=== PATIENT | male | born 1985 | race Caucasian/White ===

== ENCOUNTER 2023-03-25 08:31 | Outpatient (OUT) | payer OTHER, SELFPAY ==
--- NOTE | 2023-03-25 08:46 | CT_ITS ---
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 Dose reduction techniques were achieved by using automated exposure control and/or adjustment of mA and/or kV according to patient size and/or use of iterative reconstruction technique. FINDINGS: LUNG BASES: No visible pulmonary or pleural disease. LIVER: No enlargement, atrophy, suspicious density, or significant focal lesion. BILIARY: No dilatation or calcification. PANCREAS: No lesion, fluid collection, or abnormal duct dilatation. SPLEEN: No enlargement or focal lesion. ADRENALS: No mass or enlargement. KIDNEYS: 1.7 cm left ovarian cyst. No mass, obstruction, or calcification. BOWEL/MESENTERY: Prior appendectomy. No visible mass, obstruction, or bowel wall thickening. No mesenteric lymphadenopathy. AORTA/VASCULAR: No aneurysm or dissection. RETROPERITONEUM: No mass or adenopathy. LYMPH NODES: No adenopathy. URINARY BLADDER: No visible focal wall thickening, lesion, or calculus. PELVIC ORGANS: No visible mass. Pelvic organs appropriate for patient age. ABDOMINAL WALL: Tiny fat filled umbilical hernia without stimulation. BONES: No bony lesion or fracture. OTHER: Negative. IMPRESSION: 1.No mass or lymphadenopathy to suggest recurrent or metastatic disease. 2.No suspicious findings. Electronically authenticated by: MANUEL BENNETT Date: 03/25/2023 15:38
--- NOTE | 2023-03-25 08:47 | XR_ITS ---
The [address] [address] Patient Name: MALA GIBSON MRN: [id number] date: 1985 Sex: M Assigned Patient Location: CT Current Patient Location: CT Accession/Order Number: [id number] Exam Date: 03/25/2023 08:58 Report Date: 03/25/2023 10:01 At the request of: YOLANDA PULIDO Procedure: XR wrist KALEB min 3V EXAMINATION: XR wrist KAELB min 3V HISTORY: Acute Bilateral Wrist Pain M25.539 COMPARISON: No relevant comparison available. FINDINGS: RIGHT FINDINGS: BONES: No significant arthropathy or acute abnormality. SOFT TISSUES: No visible soft tissue swelling. OTHER: Negative. LEFT FINDINGS: BONES: No significant arthropathy or acute abnormality. SOFT TISSUES: No visible soft tissue swelling. OTHER: Negative. IMPRESSION: RIGHT CONCLUSION: Normal examination. LEFT CONCLUSION: Normal examination. Electronically authenticated by: MANUEL BENNETT Date: 03/25/2023 10:01
== END 2023-03-25 08:32 | disposition home or self-care (01) ==
PROVIDERS: PCP Family Medicine; Visit Provider Family Medicine
DX: D37.3 Neoplasm of uncertain behavior of appendix (principal); M25.531 Pain in right wrist; M25.532 Pain in left wrist
CPT/HCPCS: 73110; 74177

== ENCOUNTER 2023-04-09 08:12 | Outpatient (OUT) | payer OTHER, SELFPAY ==
[2023-04-09 08:49] LABS: Basophils Percent Auto 0.7 % (0.2-2.0); Eosinophils Absolute Auto 0.2 10^3/uL (0.0-0.7); Eosinophils Percent Auto 2.8 % (0.9-7.0); Hematocrit 42.5 % (42.0-54.0); Hemoglobin 13.7 g/dL (14.0-18.0); Immature Granulocytes Abs Auto 0.01 10^3/uL (0.00-0.03); Immature Granulocytes Pct Auto 0.2 % (0.0-0.5); Lymphocytes Absolute Auto 2.6 10^3/uL (1.2-3.8); Lymphocytes Percent Auto 45.1 % (20.5-60.0); Mean Corpuscular HGB Conc 32.2 g/dL (29.9-35.2); Mean Corpuscular Hemoglobin 29.4 pg (25.9-34.0); Mean Corpuscular Volume 91.2 fL (80.0-94.0); Monocytes Absolute Auto 0.6 10^3/uL (0.3-0.8); Monocytes Percent Auto 11.2 % (1.7-12.0); Neutrophils Absolute Auto 2.3 10^3/uL (1.4-6.5); Platelet Count 282 10^3/uL (150-450); Red Blood Count 4.66 10^6/uL (4.70-6.10); Red Cell Distribution Width 13.1 % (11.0-15.0); White Blood Count 5.7 10^3/uL (4.0-11.0)
[2023-04-09 09:03] LABS: Estimated Average Glucose 111 mg/dL; Glycohemoglobin A1C 5.5 % (4.5-6.2)
[2023-04-09 09:55] LABS: Alanine Aminotransferase 95 U/L (16-63); Albumin Level 3.9 g/dL (3.4-5.0); Alkaline Phosphatase 53 U/L (46-116); Anion Gap 12.5; Aspartate Amino Transferase 39 U/L (15-37); BUN Creatinine Ratio 18.3; Bilirubin Total 0.8 mg/dL (0.2-1.0); Calcium 9.4 mg/dL (8.5-10.1); Carbon Dioxide 27.1 mmol/L (21.0-32.0); Chloride 105 mmol/L (98-107); Chol HDL Ratio 4.1; Cholesterol 147 mg/dL (<=200); Estimated GFR (African America >60 (>=60); Estimated GFR (Non-African Ame >60 (>=60); Globulin 4.1 g/dL; Glucose 106 mg/dL (74-106); HDL Cholesterol 36 mg/dL (40-60); Potassium 4.6 mmol/L (3.5-5.1); Sodium 140 mmol/L (136-145); Thyroid Stimulating Hormone 0.742 uIU/mL (0.358-3.740); Triglycerides 93 mg/dL (<=150); VLDL CHOLESTEROL 18.6 mg/dL
[2023-04-10 12:08] LABS: Insulin 9.2 uIU/mL (2.6-24.9)
== END 2023-04-09 08:13 | disposition home or self-care (01) ==
LOC: LAB 08:13
PROVIDERS: PCP Family Medicine; Visit Provider Family Medicine
DX: M25.539 Pain in unspecified wrist (principal); R20.2 Paresthesia of skin; Z12.5 Encounter for screening for malignant neoplasm of prostate
CPT/HCPCS: 36415; 80053; 80061; 83036; 83525; 84436; 84443; 84481; 85025; G0103

== ENCOUNTER 2025-04-09 08:51 | Outpatient (OUT) | payer OTHER, SELFPAY ==
--- OUTSIDE RECORDS SUMMARY | 2024-03-29 06:23 | XMS_ITS ---
Author Organization The [facility] in [place] Address [address] [place] [address] Care Team Providers Care Marketing Technology Coordinator Name Role Phone Gerardo Pulido Primary Care Provider [phone] YOLANDA PULIDO Unavailable [phone] REASON FOR VISIT + covid Medications Medication SIG (Take, Route, Frequency, Duration) Notes Start Date End Date Status dexAMETHasone 6 MG 1 tablet Orally qday for 6 03/29/2024 Active Azithromycin 250 MG 2 tabs day 1, then 1 tab Orally qd for 5 days 03/29/2024 Active Paxlovid (300/100) 20 x 150 MG & 10 x 100MG 3 tablets Orally Twice a day for 5 day(s) 03/29/2024 Active Encounters Encounter Location Date Provider Diagnosis [facility] [address] [place] [address] 03/29/2024 YOLANDA PLUIDO Plan Of Treatment Medication Medication Name Sig Start Date Stop Date Notes dexAMETHasone 6 MG 1 tablet Orally qday for 6 03/29/2024 Azithromycin 250 MG 2 tabs day 1, then 1 tab Orally qd for 5 days 03/29/2024 Paxlovid (300/100) 20 x 150 MG & 10 x 100MG 3 tablets Orally Twice a day for 5 day(s) 03/29/2024 Progress Notes * Bobby GARCIADOB:1985 (38 yo M)Acc No.[id number]:03/29/2024 Patient: Rom Bobby KELLOGG :1985 A ge:38 Y S ex:Male Address:[address], [place] , [place] [address] * Refills Start Azithromycin Tablet, 250 MG, Orally, 6, 2 tabs day 1, then 1 tab, qd, 5 days Start dexAMETHasone Tablet, 6 MG, Orally, 6, 1 tablet, qday, 6 Start Paxlovid (300/100) Tablet Therapy Pack, 20 x 150 MG & 10 x 100MG, Orally, 30, 3 tablets, Twice a day, 5 day(s) * true * Date: Generated for Tasha falk/Jarett/Kapilitting on: 0 04/09/2025 08:55 AM EDT
--- OUTSIDE RECORDS SUMMARY | 2024-05-12 04:19 | XMS_ITS ---
Author Organization The [facility] in [place] Address [address] [place] [address] Care Team Providers Care Campaign Worker Name Role Phone ChicaGerardo Primary Care Provider REASON FOR VISIT congestion Medications Medication SIG (Take, Route, Frequency, Duration) Notes Start Date End Date Status Amoxicillin-Pot Clavulanate 875-125 MG 1 tablet Orally every 12 hrs for 10 days 05/12/2024 Active Encounters Encounter Location Date Provider Diagnosis [facility] [address] [place] [address] 05/12/2024 Gerardo Coto Plan Of Treatment Medication Medication Name Sig Start Date Stop Date Notes Amoxicillin-Pot Clavulanate 875-125 MG 1 tablet Orally every 12 hrs for 10 days 05/12/2024 Progress Notes * Bobby GARCIADOB:1985 (38 yo M)Acc No.[id number]:05/12/2024 Patient: Bobby HARPER :1985 A ge:38 Y S ex:Male Address:[address] [place], [address] * Refills Start Amoxicillin-Pot Clavulanate Tablet, 875-125 MG, Orally, 20 Tablet, 1 tablet, every 12 hrs, 10 days, Refills=1 * true * Date: Generated for Printi ng/Faxing/eTransmitting on: 0 04/09/2025 08:55 AM EDT
--- OUTSIDE RECORDS SUMMARY | 2025-03-21 12:30 | XMS_ITS ---
Author Organization The [facility] in [place] Address [address] [place] [address] Care Team Providers Care Process Automation Engineer Name Role Phone Gerardo Coto Primary Care Provider Allergies No Known Allergies REASON FOR VISIT Breathing Issues Medications Medication SIG (Take, Route, Fr equency, Duration) Notes Start Date End Date Status Protonix 40 MG 1 tablet Orally Ever y Evening for 30 day(s) PRN 04/12/2023 Active Social History Tobacco Use: Social History Observation Description Date Details (start date - stop date) Never Smoker NA - NA Tobacco Use/Smoking Question Answer Notes Patient is a nonsmoker AUDIT-C (Standard) Question Answer Notes Did you have a drink containing alcohol in the p ast year? No Points 0 Interpretation Negative Problems Problem Type SNOMED Code ICD Code Onset Dates Problem Status W/U Status Risk Notes Problem Well adult (034673834) Well adult (Z00.00) Active confirmed Vital Signs Weight 325 lbs 03/21/2025 Height 68 in 03/21/2025 Blood pressure systolic 152 mm Hg 03/21/20 25 Blood pressure diastolic 92 mm Hg 025 BMI 49.41 kg/m2 03/21/2025 Procedures Procedure Date Ordered Date Performed Result Body Sit e CARDIO Stress Test - Cardiolite 03/21/2025 N/A CARDIO Echocardiogram 03/21/2025 N/A Encounters Encounter Location Date Provider Diagnosis [facility] [address] [place] [address] 03/21/2025 Gerardo Chica Dyspnea R06.00 and Well adult Z00.00 Assessments Encounter Date Diagnosis (ICD Code) Assessment Notes Treatment Notes Treatment Clinical Notes Section Notes 03/21/2025 Dyspnea (ICD-10 - R06.00) 03/21/2025 Well adult (ICD-10 - Z00.00) Plan Of Treatment Pending Test Test Name Order Date HEMOGLOBIN A1C (GLYCO) 03/21/2025 LIPID PANEL (CHOL/TRIG/HDL/LDL) 03/21/20 25 CARDIO Stress Test - Cardiolite 03/21/20 25 CARDIO Echocardiogram 03/21/2025 Insulin Level 03/21/2025 High Sensitivity Troponin 03/21/2025 BNP 03/21/2025 THYROID PANEL (T4/TSH/FREE T3) CMP (COMP MET JUAREZ) w/eGFR CKD-EPI 2024 CBC WITH DIFF 03/21/2025 Progress Notes * Bobby GARCIADOB:1985 (39 yo M)Acc No.[id number]:03/21/2025 Progress Note Patient: Bobby HARPER Provider: Gino Coto ([facility])MD :1985 A ge:39 Y S ex:Male Date:03/21/2025 Address:[facility] [address], [place] , [id number] Check In:04:20 PM ESTCheck O ut:05:09 PM EST Subjective: * Chief Complaints: * B reathing Issues * HPI: D epression Screening: PHQ-2 (2015 Edition) L ittle interest or pleasure in doing things??More than half the days F eeling down, depressed, or hopeless? S everal days T otal Score 3 oxygen has been - on lowert side some chao and no chest - Exposed to [employer] - has had PFT - has them yearly - had SE of just the test tehn had fume exposure -. D epression Screening: PHQ-9 L ittle interest or pleasure in doing things?More than half the days F eeling down, depressed, or hopeless S everal days T rouble falling or staying asleep, or sleeping too much N early every day F eeling tired or having little energy M ore than half the days P oor appetite or overeating N early every day F eeling bad about yourself or that you are a failure, or have let yourself or your family down M ore than half the days T rouble concentrating on things, such as reading the newspaper or watching television N ot at all M oving or speaking so slowly that other people could have noticed; or the opposite, being so fidgety or restless that you have been moving around a lot more than usual N ot at all T houghts that you would be better off or of hurting yourself in some way N ot at all T otal Score 1 3 I nterpretation M oderate Depression * ROS: E ENT: hearing changes d enies. v isual changes d enies.?non-healing mouth sores d enies. s wollen glands or neck lumps d enies. h oarseness d enies. s ore throat d enies. d ifficulty swallowing d enies. n ose bleeds d enies. n brittni congestion d enies. e ar ache d enies. e ar discharge?denies. r inging in ears d enies. l ight sensitivity d enies. e ye pain d enies. b lurring d enies. e ye irritation d enies. d ouble vision d enies.?vision loss d enies. G eneral/Constitutional: Sweats: D enies. F atigue d enies. S leep problems d enies. A norexia d enies. M alaise d enies. W eight loss d enies.?Fatigue or Weakness d enies. F ever or Chills d enies. C ardiovascular: Shortness of Breath w/lying flat d enies. L ightheadedness/dizziness d enies. C hest tightness/ heavy pressure d enies. S welling of legs, ankles, or feet d enies. W aking up with shortness of breath d enies. C hest pain denies. P alpitations d enies. W eight gain d enies. R espiratory: Chronic or frequent cough d enies. C oughing up blood?denies. D ifficulty breathing d enies. P roductive cough d enies. S noring?denies. S hortness of breath that awakens from sleep (PND) d enies. C hest pain d enies. S putum production d enies. W heezing d enies. M usculoskeletal: Joint pain d enies. J oint Fluid d enies. B ack pain d enies. K nee pain d enies. N jigna pain d enies. J oint Stiffness d enies. M uscle cramps d enies. W eakness of muscles d enies. A rthritis d enies. M uscle aches d enies. P ain in shoulder(s) d enies. S wollen joints d enies. 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 Modified On:03/12/2023U Status:confirmed G56.03 Carpal tunnel syndro me, bilateral upper limbs Modified On:04/30/2023U Status:confirmed Z68.41 Body mass index [BMI ] 40.0-44.9, adult Modified On:05/14/2023U Status:confirmed K57.30 Diverticulosis of la rge intestine without perforation or abscess without bleeding Modified On:06/22/2023U Status:confirmed Z00.00 Well adult Modified On:03/21/2025 Status:confirmed * Medical History: * Surgical History: E GD/Colonoscopy 12/07/2012icep Tenotomy Distal Splenrenal Shunt Placement * Hospitalization/Major Diagno stic Procedure: S ee above * Family History: F ather: 53 yrs, Lung cancer, diagnosed with Other malignant neoplasm of unspecified site. M other: , leukemia, diagnosed with Other malignant neoplasm of unspecified site. Brother(s): alive. D aughter(s): alive. 1 brother(s) . 1 daughter(s) - healthy. . * Social History: T obacco Use: T obacco Use/Smoking P atient is a n onsmoker D rug/Alcohol: A JOSÉ MANUEL-C (Standard) D id you have a drink containing alcohol in the past year? N o P oints 0 I nterpretation N egative * Medications: T akingProtonix(Pantoprazole Sodium) 40 MG Tablet Delayed Release 1 tablet Orally Every Evening , Notes to Pharmacist: PRNTaking Protonix(Pantoprazole Sodium) 40 MG Tablet Delayed Release 1 tablet Orally Every Evening , Notes to Pharmacist: PRNDiscontinuedAbilify(ARIPiprazole) 5 MG Tablet 1 tablet Orally Once a day Adipex-P(Phentermine HCl) 37.5 MG Tablet 1 tablet before breakfast Orally Once a day Amoxicillin-Pot Clavulanate 875-125 MG Tablet 1 tablet Orally every 12 hrs Azithromycin 250 MG Tablet 2 tabs day 1, then 1 tab Orally qd dexAMETHasone 6 MG Tablet 1 tablet Orally qday Paxlovid (300/100)(Nirmatrelvir&Ritonavir 300/100) 20 x 150 MG & 10 x 100MG Tablet Therapy Pack 3 tablets Orally Twice a day Medication List reviewed and reconciled with the patientDiscontinued Abilify(ARIPiprazole) 5 MG Tablet 1 tablet Orally Once a day Discontinued Adipex-P(Phentermine HCl) 37.5 MG Tablet 1 tablet before breakfast Orally Once a day Discontinued Amoxicillin-Pot Clavulanate 875-125 MG Tablet 1 tablet Orally every 12 hrs Discontinued Azithromycin 250 MG Tablet 2 tabs day 1, then 1 tab Orally qd Discontinued dexAMETHasone 6 MG Tablet 1 tablet Orally qday Discontinued Paxlovid (300/100)(Nirmatrelvir&Ritonavir 300/100) 20 x 150 MG & 10 x 100MG Tablet Therapy Pack 3 tablets Orally Twice a day Medication List reviewed and reconciled with the patient * Allergies: N .K.D.A.no[Allergies Verified] Objective: * Vitals: W t:325lbs, Ht: 68 in, BP:152/92mm Hg, BMI:49.41Index, Ht-cm: 172.72 cm, Wt-k.42 kg. * Examination: P hysical Exam: GENERAL: w ell developed, well nourished, in no acute distress. HEAD: n ormocephalic/atraumatic. EYES: p upils equal, round and reactive to light, conjunctivae and sclerae normal. EARS: n o deformity or lesion of external ear, canals and TM appear normal bilaterally, TM's intact, not inflamed with normal light reflex, hearing grossly normal to conversational speech. NOSE: n o deformity, discharge, inflammation, or lesions.? MOUTH: m ucous membranes moist, normal oropharynx and posterior pharynx without lesions or exudates, tongue normal, dentition normal. NECK: n jigna supple, no masses or palpable cervical nodes, trachea midline, thyroid without nodules, masses, tenderness, or enlargement. CHEST: n o chest wall deformity, no chest wall tenderness.? LUNGS: n ormal respiratory effort and clear to auscultation, no wheezes, rales, or rhonchi, good air exchange. CARDIO: r egular rate and rhythm, normal S1 and S2, nor murmur, rub, or gallop. PULSES: n ormal capillary refill. ABDOMEN: s oft, non-distended, non-tender, no masses. MUSCULOSKELETAL: n o deformity or scoliosis noted, normal range of motion, joints normal, no erythema, edema, effusion, or ecchymosis. EXTREMITY: n o clubbing, cyanosis, edema, or deformity with normal ROM in both upper and lower bilateral extremities. NEUROLOGIC: g rossly normal. SKIN: n o rashes, ulcerations, or suspicious lesions. LYMPH NODES: n o cervical adenopathy, nodes normal. MENTAL STATUS: a lert and oriented x3, normal mood and affect. Assessment: * Assessment: 1. D yspnea - R06.00 (Primary) 2 . W ell adult - Z00.00 Plan: * Treatment: 2. W ell adult L AB: HEMOGLOBIN A1C (GLYCO) L AB: LIPID PANEL (CHOL/TRIG/HDL/LDL) L AB: Insulin Level L AB: High Sensitivity Troponin L AB: BNP L AB: THYROID PANEL (T4/TSH/FREE T3) L AB: CMP (COMP MET JUAREZ) w/eGFR CKD-EPI L AB: CBC WITH DIFF * Procedure Codes: * Preventive Medicine: Screenings/Counseling: B LA ACTION PLAN Above Normal BMI Follow-up D ietary management education, guidance, and counseling * * Sign off status: Completed Visit Status: Tamica HK (Check Out) true * Provider: Gino Coto ([facility])MD Date: 03/21/2025 Generated for Printi ng/Faxing/eTransmitting on: 04/09/2025 08:54 AM EDT History and Physical Notes * HPI (History of Present Illness) Category Sub-Category Detail Notes Category Not es Depression Screening PHQ-9 Little inte rest or pleasure in doing things: More than half the days Feeling down, depressed, or hopeless: Se veral days Trouble falling or staying asleep, or sl eeping too much: Nearly every day Feeling tired or having little energy: M ore than half the days Poor appetite or overeating: Nearly ever y day Feeling bad about yourself o r that you are a failure, or have let yourself or your family down: More than half the days Trouble concentrating on thi ngs, such as reading the newspaper or watching television: Not at all Moving or speaking so slowly that other people could have noticed; or the opposite, being so fidgety or restless that you have been moving around a lot more than usual: Not at all Thoughts that you would be b melani off or of hurting yourself in some way: Not at all Total Score: 13 Interpretation: Moderate Depression Depression Screening PHQ-2 (2015 Edition) Little interest or pleasure in doing things?: More than half the days oxygen has been - on lowert side some chao and no chest - Exposed to [employer] - has had PFT - has them yearly - had SE of just the test tehn had fume exposure - Feeling down, depressed, or hopeless?: S everal days Total Score: 3 Examination Category Sub-Category Detail Notes Category Not es Physical Exam GENERAL: well developed, well nourished, in no acute distress HEAD: normocephalic/atraum atic EYES: pupils equal, round and reactive to light, conjunctivae and sclerae normal EARS: no deformity or lesi on of external ear, canals and TM appear normal bilaterally, TM's intact, not inflamed with normal light reflex, hearing grossly normal to conversational speech NOSE: no deformity, discha rge, inflammation, or lesions MOUTH: mucous membranes abbey st, normal oropharynx and posterior pharynx without lesions or exudates, tongue normal, dentition normal NECK: neck supple, no mass es or palpable cervical nodes, trachea midline, thyroid without nodules, masses, tenderness, or enlargement CHEST: no chest wall deform ity, no chest wall tenderness LUNGS: normal respiratory e ffort and clear to auscultation, no wheezes, rales, or rhonchi, good air exchange CARDIO: regular rate and rhy thm, normal S1 and S2, nor murmur, rub, or gallop PULSES: normal capillary ref ill ABDOMEN: soft, non-distended, non-tender, no masses RECTAL: MUSCULOSKELETAL: no deformity or scol iosis noted, normal range of motion, joints normal, no erythema, edema, effusion, or ecchymosis EXTREMITY: no clubbing, cyanosi s, edema, or deformity with normal ROM in both upper and lower bilateral extremities NEUROLOGIC: grossly normal SKIN: no rashes, ulceratio ns, or suspicious lesions LYMPH NODES: no cervical adenopat hy, nodes normal MENTAL STATUS: alert and oriented x 3, normal mood and affect
--- OUTSIDE RECORDS SUMMARY | 2025-04-09 08:55 | XMS_ITS | Clinical Summary ---
Author Organization [facility] Address [address] [place] [address] Phone Care Team Providers Care Top Executive Name Role Phone Stefan Coto MD Primary Care Provider [phone] Social History Tobacco Use Types Packs/Day Years Used Date Smoking Tobacco: Never Assessed Sex and Gender Information Value Date Recorded Sex Assigned at Not on file Legal Sex Male 10:26 AM EST Gender Identity Not on file Sexual Orientation Not on file Last Filed Vital Signs Vital Sign Reading Time Taken Comments Blood Pressure - - Pulse - - Temperature - - Respiratory Rate - - Oxygen Saturation - - Inhaled Oxygen Concentration - - Weight 123 kg (270 lb 15.1 oz) 11/30/2018 7:44 A M EDT Height 172.7 cm (5' 7.99 ) 11/30/2018 7:44 AM ED T Body Mass Index 41.21 11/30/2018 7:44 AM EDT Plan of Treatment Not on file Care Teams Top Executive Relationship Specialty Start Date End Date Stefan Coto MD [address] [place] [address] PCP - General 11/16/18
--- OUTSIDE RECORDS SUMMARY | 2025-04-09 08:55 | XMS_ITS | Clinical Summary ---
Author Organization [employer] Address [id number] [address] [place] [address] Care Team Providers Care Administration Vice President Name Role Phone Stefan Coto MD Primary Care Provider [phone] Allergies No known active allergies Medications phentermine (ADIPEX-P) 37.5 mg tablet Take 37.5 mg by mouth every morning before breakfast. Active ibuprofen (ADVIL) 200 mg tablet Take 200 mg by mouth every 6 (six) hours as needed for pain. Active acetaminophen (TYLENOL) 500 mg tablet Take 500 mg by mouth every 6 (six) hours as needed for pain. Active Family History Medical History Relation Name Comments Cancer Father Cancer Mother Relation Name Status Comments Father Mother Social History Tobacco Use Types Packs/Day Years Used Date Smoking Tobacco: Never Smokeless Tobacco: Never Alcohol Use Standard Drinks/Week Comments Yes 0 (1 standard drink = 0.6 oz pur e alcohol) rarely Childcare Answer Date Recorded Childcare Unknown 03/01/2019 Employment Answer Date Recorded Employment Unknown 03/01/2019 Purpose - Life Answer Date Recorded Purpose and direction in life Unknown Sex and Gender Information Value Date Recorded Sex Assigned at Not on file Legal Sex Male 11:33 AM EDT Gender Identity Not on file Sexual Orientation Not on file Last Filed Vital Signs Vital Sign Reading Time Taken Comments Blood Pressure 142/91 02/02/2018 2:45 PM EDT Pulse 79 02/02/2018 1:55 PM EDT Temperature 35.8 C (96.4 F) 02/02/2018 1:25 PM EDT Respiratory Rate 21 02/02/2018 1:55 PM EDT Oxygen Saturation 95% 02/02/2018 2:45 PM EDT Inhaled Oxygen Concentration - - Weight 127.5 kg (281 lb) 02/02/2018 9:22 AM EDT Height 172.7 cm (5' 8 ) 02/02/2018 9:22 AM EDT Body Mass Index 42.73 02/02/2018 9:22 AM EDT Plan of Treatment Not on file Medical Devices Implanted Type Area Coal Crusher Operator Device Identifier Shelf Expiration Date Model / Serial / Lot Pshlk 3.5mm Bio-Pushlock [id number] Ea Only For Billonly - Sna - [id number] Implanted:Qty: 1 on 02/02/2018 by Bobby Means DO at [facility] [place] Right: Shoulder Arthrex 09/19/2019 AR-1926B / NA / [id number] Pshlk 3.5mm Bio-Pushlock [id number] Ea Only For Billonly - Andre-1926b - [id number] Implanted:Qty: 1 on 02/02/2018 by Bobby Means DO at [facility] [place] Right: Shoulder Arthrex 05/05/2019 AR-1926B / [id number] / [id number] Description:3.5 x 19.1 mm zuluaga ture anchor bio-pushlock Suture [place] Swivel - [id number] - [id number] Implanted:Qty: 1 on 02/02/2018 by Bobby Means DO at [facility] [place] Right: Shoulder Arthrex [id number] / [id number] / [id number] Insurance [facility] Care Teams Administration Vice President Relationship Specialty Start Date End Date Stefan Coto MD PCP - General 01/10/18
--- OUTSIDE RECORDS SUMMARY | 2025-04-09 08:55 | XMS_ITS | Patient Health Record ---
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 Problem Cardiomegaly (3817289) Cardiomegaly (I51.7) Active confirmed Problem 197942213 Diverticulosis o f large intestine without perforation or abscess without bleeding (K57.30) Active confirmed Problem Obstructive sleep apnea syndrome (98044543) KJ (obstructive sleep apnea) (G47.33) Active confirmed Problem Irritable bowel syndrome (56929865) IBS (irritable bowel syndrome) (K58.9) Active confirmed Problem Well adult (549484815) Well adult (Z00.00) Active confirmed Problem Paresthesia (79155482) Paresthesia (R20.2) Active confirmed Problem Wrist pain (58199028) Wrist pain, acute (M25.539) Active confirmed Problem 05793146339240981 Carpal tunnel syndrome, bilateral upper limbs (G56.03) Active confirmed Problem 042733420 Body mass index [BMI] 40.0-44.9, adult (Z68.41) Active confirmed Vital Signs Blood pressure diastolic 92 mm Hg 03/21/2025 Height 68 in 03/21/2025 Blood pressure systolic 152 mm Hg 03/21/2025 Weight 325 lbs 03/21/2025 BMI 49.41 kg/m2 03/21/2025 Procedures Procedure Date Ordered Date Performed Result Body Sit e CARDIO Stress Test - Cardiolite 03/21/2025 N/A CARDIO Echocardiogram 03/21/2025 N/A Encounters Encounter Location Date Provider Diagnosis [facility] [address] [place] [address] 05/12/2024 Gerardo Garzay [facility] [address] [place] [address] 03/21/2025 Gerardo Hoaubrey Dyspnea R06.00 and Well adult Z00.00 Assessments Encounter Date Diagnosis (ICD Code) Assessment Notes Treatment Notes Treatment Clinical Notes Section Notes 03/21/2025 Dyspnea (ICD-10 - R06.00) 03/21/2025 Well adult (ICD-10 - Z00.00) Plan Of Treatment Pending Test Test Name Order Date CMP (COMPLETE METABOLIC PANEL) 3 HEMOGLOBIN A1C (GLYCO) 03/12/2023 HEMOGLOBIN A1C (GLYCO) 03/21/2025 INSULIN, TOTAL 03/12/2023 LIPID PANEL (CHOL/TRIG/HDL/LDL) 03/12/20 LIPID PANEL (CHOL/TRIG/HDL/LDL) 03/21/20 25 CBC WITH DIFF 03/12/2023 PSA, PROSTATE-SPECIFIC ANTIGEN 3 CT Abdomen and Pelvis w/contrast * 03/12 CARDIO Stress Test - Cardiolite 03/21/20 25 CARDIO Echocardiogram 03/21/2025 Insulin Level 03/21/2025 High Sensitivity Troponin 03/21/2025 BNP 03/21/2025 XR WRIST LT MIN 3 V 03/12/2023 XR WRIST RT MIN 3 V 03/12/2023 THYROID PANEL (T4/TSH/FREE T3) 3 THYROID PANEL (T4/TSH/FREE T3) 5 CMP (COMP MET JUAREZ) w/eGFR CKD-EPI 2024 CBC WITH DIFF 03/21/2025 Insurance Providers Payer Name Payer Address Payer Phone Subscriber Number Group Number Insured Name Patient Relationship to Insured Coverage Start Date Coverage End Date [employer] [address] [address] [place] [address] [id number] Bobby Garcia Self - patient is the insured 3 Medical (General) History Medical History History ICD Code Shingles B02.9 KJ (obstructive sleep apnea) G47.33 Rotator Cuff Tear Adenocarcinoma Appendix IBS (irritable bowel syndrome) K58.9 Cardiomegaly I51.7 Concussion S06.0X9A Neoplasm of uncertain behavior of append ix D37.3 Surgical History Surgery Date(Month/Year) Bicep Tenotomy EGD/Colonoscopy 12/07/2012 Distal Splenrenal Shunt Placement Hospitalization History Reason Date(Month/Year) See above
--- NOTE | 2025-04-09 09:00 | NM_ITS ---
Patient Name: MALA GIBSON MR#: [id number] : 1985 Exam Date: 04/09/2025 Ordering Doctor: DR YOLANDA PULIDO . RADIOLOGY REPORT PROCEDURE: NM CADEN PERF SPECT REST STR COMPARISON: None. INDICATIONS: DYSPNEA TECHNIQUE: Exam Description: Stress/Rest two day protocol gated SPECT Rest Imagin.4 mCi Tc-99m Cardiolite IV on 04/11/2025 Stress Imaging 25.1 mCi Tc-99m Cardiolite IV on 04/09/2025 Exercise Protocol: Андрей Heart Rate (bpm): Rest: 69 Max: 162 PMHR: 90 Blood Pressure: Rest: 150/86 Max: 166/86 Exercise Time: Minutes: 6 Seconds: 37 Stage Reached: Stage: 3 Mets 8.8 Symptoms: Rest and peak stress ECG findings were pending, and the exercise portion of the study was pending per attending physician [facility]. For more details, please see separate cardiac stress test report. FINDINGS: QUALITY OF STUDY: Adequate PERFUSION DEFECT: LOCATION: Apical SIZE: Small SEVERITY: Mild TYPE: Fixed likely representing physiological apical thinning WALL MOTION: LV SIZE: 110 mL. TID / TCD: 0.9 LVEF: Calculated EF 63%. SUMMARY: Myocardial perfusion imaging study is normal CONCLUSION: 1. Myocardial perfusion is normal with soft tissue attenuation 2. Global left ventricular systolic function is normal 3. No evidence of significant transient ischemic dilatation Dictated by: Haim Pinzon M.D. on 04/17/2025 at 08:56 Approved by: Haim Pinzon M.D. on 04/17/2025 at 08:58
--- NOTE | 2025-04-09 10:09 | PC.NURSE ---
Nursing Note Cardiac Stress Test Reviewed: Medication, allergies and patient history reviewed. Stress Test: [x ] Patient tolerated stress test well. [ ] Patient unable to tolerate walking on treadmill. Switched to Lexiscan stress test. [x ] No chest pain noted per patient [ ] Chest pain that resolved prior to leaving stress lab. [ ] No dyspnea noted. [x ] Dyspnea that resolved prior to leaving stress lab. x[ ] Patient left stress lab asymptomatic and hemodynamically stable. [ ] Patient taken to the Emergency Room due to non-resolving symptoms following stress test. [x ] Patient achieved target heart rate. [ ] Patient unable to achieve target heart rate. [ ] Aminophylline administered as reversal agent to Lexiscan (Regadenoson). [ ] Nitro administered. Nursing Comments:Pt had Cardio Lite test done. No CP but had SOB which he states is why he is having the test done. Pt recovered within 3 minutes of rest. Ambulated to cafeteria for breakfast prior to second set of images.
--- NOTE | 2025-04-09 18:14 | PM.STRESS ---
Stress Test Stress Test Requesting physician: Stefan Coto Procedure: This was a Treadmill stress test with myocardial perfusion imaging performed at the [facility] on 04/09/2025. Intravenous line was secured. The patient was attached to electrocardiographic monitoring. Baseline vital signs and ECG were obtained. The patient exercised on the treadmill according to the Андрей protocol. Cardiolite was administered at peak exercise. The patient then went on to obtain myocardial perfusion imaging. The patient exercised for 6 minutes and 37 seconds according to the Андрей protocol. He reached stage III and achieved 8.8 METS. Resting heart rate was 69 bpm and peak heart rate was 162 bpm representing 90% of peak predicted heart rate. Resting blood pressure was 150/86 and peak blood pressure was 166/86. General Information: Reason for Stress Test: Dyspnea. Cardiac History and Risk Factors: Hypertension. Resting 12 - Lead Electrocardiogram: Sinus rhythm. Stress Test: Protocol: Андрей protocol. Exercise Capacity: Average. Blood Pressure Response: Resting hypertension, appropriate blood pressure response to exercise. Rhythm: Sinus rhythm with occasional PVCs. ST - Response: No ischemic ST changes seen. Patient Response: Shortness of breath with exercise. No chest pain. Interpretation: 1. No evidence of ischemic ECG changes seen with treadmill exercise. 2. Abbott treadmill score of +2.5 is associated with intermediate risk for long-term cardiac events. 3. Myocardial perfusion images will be reported separately.
== END 2025-04-09 08:52 | disposition home or self-care (01) ==
LOC: CARD 08:53
PROVIDERS: PCP Family Medicine; Visit Provider Family Medicine
DX: R06.00 Dyspnea, unspecified (principal)
CPT/HCPCS: 78452; 93017; A9500

== ENCOUNTER 2025-04-11 07:57 | Outpatient (OUT) | payer OTHER, SELFPAY | END 2025-04-11 07:58 | disposition home or self-care (01) | LOC: NM 07:57 | PROVIDERS: PCP Family Medicine; Visit Provider Family Medicine | DX: R06.00 Dyspnea, unspecified (principal) ==

== ENCOUNTER 2025-04-26 15:54 | Outpatient (OUT) | payer OTHER, SELFPAY ==
--- NOTE | 2025-04-26 16:00 | CA_ITS ---
Patient Name: MALA GIBSON MR#: [id number] : 1985 Exam Date: 04/26/2025 Ordering Doctor: DR YOLANDA PULIDO . ECHOCARDIOGRAM REPORT PROCEDURE: CA ECHO DOPPLER COMPLETE INDICATIONS: Dyspnea COMPARISON: None. DESCRIPTION: COMPLETE ECHOCARDIOGRAM Real-time transthoracic echocardiography with 2D, M-mode, spectral and color flow Doppler performed. QUALITY: Technical quality was adequate. LEFT VENTRICLE: Normal chamber size. Normal left ventricular wall thickness. Normal systolic function. LV EF: Normal left ventricular ejection fraction, (55%). DIASTOLIC: Normal diastolic function. ATRIAL SEPTUM: LEFT ATRIUM: Normal chamber size. RIGHT ATRIUM: Mild dilatation. RIGHT VENTRICLE: Mild dilatation. Normal right ventricular systolic function. TRICUSPID VALVE: Normal mobility and thickness. No stenosis with trivial regurgitation. No evidence of pulmonary hypertension. RVSP 32 mmHg MITRAL VALVE: Normal mobility and thickness. No evidence of mitral valve stenosis. There is no mitral annular calcification. No mitral regurgitation. AORTIC VALVE: Normal trileaflet appearance. No visible sclerosis. Normal leaflet mobility. No evidence of aortic valve stenosis. No aortic regurgitation. AORTIC ROOT: Normal diameter and appearance, measuring 3.1 cm. The ascending aorta is normal in size measuring 3.6 cm. PULMONIC VALVE: Normal thickness and mobility. No stenosis. Mild regurgitation. PERICARDIUM: No evidence of pericardial effusion. IVC: Normal in size, collapses with inspiration. PLEURA: CONCLUSION: 1. The left ventricle is normal in size and exhibits normal systolic function. LVEF is 55%. 2. The right ventricle appears mildly dilated and exhibits normal systolic function. 3. Mild right atrial dilatation. 4. Normal diastolic function. 5. Mild pulmonic regurgitation. 6. Normal right-sided pressures. Adult Echocardiography Procedure Report Left Ventricle LVEDD (3.7 - 5.6 cm): 5.39 cm LVESD (2.2 - 4.0 cm): 3.48 cm LVIVS thickness (0.6 - 1.2 cm): 0.87 cm LVPW thickness (0.5 - 1.0 cm): 0.9 cm e': 0.13 m/s E - e': 6.04 LVOT Max Gradient: 2.12 mm[Hg] LVOT Area (cm2): 0.73 m/s Peak Velocity (LVOT): 0.73 m/s LVOT Diameter 2.09 cm Left Atrium LA Volume Index (2D A2C): 26.79 ml/m2 Left Atrium Systolic Dimension: 4.87 cm Mitral Valve MV E to A Ratio: 0.99 Mitral Valve A-Wave Peak Velocity: 0.77 m/s Mitral Valve E-Wave Peak Velocity: 0.76 m/s Right Ventricle Aorta AO Root Diam: 3.11 cm Ascending Ao Diam: 3.60 cm Aortic Valve AoV Area (Peak Douglas): 1.54 cm2, 1.54 cm2 Peak Velocity(Antegrade Flow): 1.61 m/s Peak Gradient(Antegrade Flow): 10.42 mm[Hg] Tricuspid Valve Peak Velocity (Regurgitant Flow): 2.68 m/s Pulmonic Valve Mean Gradient: 2.75 mm[Hg], 2.67 mm[Hg] Mean Velocity: 0.77 m/s, 0.75 m/s Peak Gradient: 5.02 mm[Hg], 5.02 mm[Hg] Right Atrium Right Atrium Systolic Pressure: 75.09 ml, 75.09 ml Dictated by: Jordy Harper M.D. on 04/28/2025 at 19:48 Approved by: Jordy Harper M.D. on 04/28/2025 at 19:57
== END 2025-04-26 15:55 | disposition home or self-care (01) ==
PROVIDERS: PCP Family Medicine; Visit Provider Family Medicine
DX: R06.00 Dyspnea, unspecified (principal)
CPT/HCPCS: 93306

== ENCOUNTER 2025-04-27 15:50 | Outpatient (OUT) | payer OTHER, SELFPAY ==
--- OUTSIDE RECORDS SUMMARY | 2024-05-12 04:19 | XMS_ITS ---
Author Organization The [facility] in [place] Address [address] [place] [address] Care Team Providers Care Firebrick Layer Name Role Phone ChicaGerardo Primary Care Provider [phone] REASON FOR VISIT congestion Medications Medication SIG (Take, Route, Frequency, Duration) Notes Start Date End Date Status Amoxicillin-Pot Clavulanate 875-125 MG 1 tablet Orally every 12 hrs for 10 days 05/12/2024 Active Encounters Encounter Location Date Provider Diagnosis [facility] [address] [place] [address] 05/12/2024 Gerardo Coto Plan Of Treatment Medication Medication Name Sig Start Date Stop Date Notes Amoxicillin-Pot Clavulanate 875-125 MG 1 tablet Orally every 12 hrs for 10 days 05/12/2024 Progress Notes * Bobby GARCIADOB:1985 (38 yo M)Acc No.[id number]:05/12/2024 Patient: Bobby HARPER :1985 A ge:38 Y S ex:Male Address:[address] [place], [address] * Refills Start Amoxicillin-Pot Clavulanate Tablet, 875-125 MG, Orally, 20 Tablet, 1 tablet, every 12 hrs, 10 days, Refills=1 * true * Date: Generated for Printi ng/Faxing/eTransmitting on: 0 04/27/2025 03:52 PM EDT
--- OUTSIDE RECORDS SUMMARY | 2025-04-17 10:32 | XMS_ITS ---
Author Organization [facility] in [place] Address [address] [place] [address] Care Team Providers Care Scrape Gatherer Name Role Phone Gerardo Coto Primary Care Provider REASON FOR VISIT Stress Test Encounters Encounter Location Date Provider Diagnosis [facility] [address] [place] [address] 04/17/2025 Gerardo Coto Plan Of Treatment No Information Progress Notes * Bobby GARCIADOB:1985 (39 yo M)Acc No.[id number]:04/17/2025 Patient: Bobby HARPER :1985 A ge:39 Y S ex:Male Address:[address] [place], [address] * true * Date: Generated for Printi ng/Faxing/eTransmitting on: 0 04/27/2025 03:52 PM EDT
--- OUTSIDE RECORDS SUMMARY | 2025-04-27 15:52 | XMS_ITS | Encounter Summary ---
Author Organization [facility] Address [address] [place] [address] Care Team Providers Care Clinical Data Assistant Name Role Phone Stefan Coto (Historical) Primary Care Provide r Unavailable Source Comments In the event this information is protected by the Federal Confidentiality of Alcohol and Drug AbusePatient Records regulations: The Federal rules restrict any use of the information to criminally investigate or prosecute any alcohol or drug abuse patient.[facility] Encounter Details Date Type Department Care Team (Late st Contact Info) Description 03/22/2025 Lab Requisition [facility] [address] [place] [address] [place] [address] [place] [address] Social History Tobacco Use Types Packs/Day Years Used Date Smoking Tobacco: Never Smokeless Tobacco: Never Alcohol Use Standard Drinks/Week Comments No 0 (1 standard drink = 0.6 oz pur e alcohol) Sex and Gender Information Value Date Recorded Sex Assigned at Not on file Legal Sex Male 10:49 AM EDT Gender Identity Not on file Sexual Orientation Not on file documented as of this encounter Functional Status * Are you deaf or do you have serious difficulty hearing? Answer Date of Assessment Author No 01/17/2015 2:39 PM EDT Tenzin Mckee * Are you blind or do you have serious difficulty seeing, even when wearing glasses? Answer Date of Assessment Author No 01/17/2015 2:39 PM EDT RafiTenzin * Do you have serious difficulty walking or climbing stairs? Answer Date of Assessment Author No 01/17/2015 2:39 PM EDT RafiTenzin * Do you have difficulty dressing or bathing? Answer Date of Assessment Author No 01/17/2015 2:39 PM EDT RafiTenzin * Because of a physical, mental, or emotional condition, do you have difficulty doing errands alone such as visiting a doctor's office or shopping? Answer Date of Assessment Author No 01/17/2015 2:39 PM EDT Rafi Tenzin gomez documented as of this encounter Mental Status * Because of a physical, mental, or emotional condition, do you have serious difficulty concentrating, remembering, or making decisions? Answer Entry Date Author No 01/17/2015 2:39 PM EDT Tenzin Mckee documented in this encounter Plan of Treatment Not on file documented as of this encounter Procedures Procedure Name Priority Date/Time Associated Diagnosis Comments DARK GREEN TOP TUBE Routine 03/21/2025 8 :50 AM EDT LPT TO BERYLLIUM BLD Routine 03/21/2025 8:50 AM EDT documented in this encounter Results * DARK GREEN TOP TUBE (03/21/2025 8:50 AM EDT) Blood BLOOD SPECIMEN / Unknown 03/21/2025 8:50 AM EDT 03/22/2025 10:14 AM EDT us Ruperto Emerson MD LABORATORY Final Resul t [facility] [address] [address], * LPT TO BERYLLIUM BLD (03/21/2025 8:50 AM EDT) PHA Stim Index Blood 367 >50 SI 03/30/2025 11:28 AM EDT [facility] BE 1.0 uM D5 Blood 1.2 <3.0 SI 03/30/2025 11:28 AM EDT [facility] BE 1.0 uM D6 Blood 1.0 <3.0 SI 03/30/2025 11:28 AM EDT [facility] BE 10 uM D5 Blood 0.9 <3.0 SI 03/30/2025 11:28 AM EDT [facility] BE 10 uM D6 Blood 1.1 <3.0 SI 03/30/2025 11:28 AM EDT [facility] BE 100 uM D5 Blood 0.8 <3.0 SI 03/30/2025 11:28 AM EDT [facility] BE 100 uM D6 Blood 1.5 <3.0 SI 03/30/2025 11:28 AM EDT [facility] LPT to Lizzette Interp Normal response to Beryllium. All six Beryllium indices are less than 3.0. 03/30/2025 11:28 AM EDT [facility] LPT to Lizzette Reviewed by Reviewed by Zaire Bundy, Ph.D D(VIKI) 03/30/2025 11:28 AM EDT [facility] Blood BLOOD SPECIMEN / Unknown 03/21/2025 8:50 AM EDT 03/22/2025 10:14 AM EDT [facility] - 03/30/2025 11:28 AM EDT Lymphocyte proliferation test to Beryllium is a cellular assay used as an aid in diagnosis of prior sensitization to Beryllium in the environment. Beryllium-sensitized individuals may remain asymptomatic for extended periods and never develop chronic berylliosis. Clinical, epidemiological, and radiological correlation is required. Bronchoalveolar lavage testing offers higher sensitivity than whole blood testing. This test was developed and its performance characteristics determined by [facility]'s Brijesh Bender [facility] [place] ([facility]). It has not been cleared or approved by the FDA. [facility] is regulated under CLIA as qualified to perform high complexity testing. This test is used for clinical purposes. It should not be regarded as investigational or for research. us Ruperto Emerson MD LABORATORY Final Resul t [facility] [address] [facility] [address] [place] [address], documented in this encounter Visit Diagnoses Not on filedocumented in this encounter Care Teams Clinical Data Assistant Relationship Specialty Start Date End Date Stefan Coto (Historical) [address] [place] [address] PCP - General 07/16/14 documented as of this encounter
--- OUTSIDE RECORDS SUMMARY | 2025-04-27 15:52 | XMS_ITS | Encounter Summary ---
Author Organization [facility] Address [address] [place] [address] Care Team Providers Care Molecular Modeler Name Role Phone Stefan Coto (Historical) Primary Care Provide r Unavailable Source Comments In the event this information is protected by the Federal Confidentiality of Alcohol and Drug AbusePatient Records regulations: The Federal rules restrict any use of the information to criminally investigate or prosecute any alcohol or drug abuse patient.[facility] Encounter Details Date Type Department Care Team (Late st Contact Info) Description 04/21/2023 Lab Requisition [facility] [place] [facility] [address] [place] [address] [place] [address] [place] [address] Social History Tobacco Use Types Packs/Day Years [...] 01/17/2015 2:39 PM EDT Tenzin Mckee * Do you have serious difficulty walking [...] 01/17/2015 2:39 PM EDT Tenzin Mckee documented as of this encounter Mental Status * Because of a physical, mental, or emotional condition, do you have serious difficulty concentrating, remembering, or making decisions? Answer Entry Date Author No 01/17/2015 2:39 PM EDT Rafi Tenzin gomez documented in this encounter Plan of Treatment Not on file documented as of this encounter Procedures Procedure Name Priority Date/Time Associated Diagnosis Comments DARK GREEN TOP TUBE Routine 04/20/2023 8 :40 AM EDT DARK GREEN TOP TUBE Routine 04/20/2023 8 :40 AM EDT DARK GREEN TOP TUBE Routine 04/20/2023 8 :40 AM EDT LPT TO BERYLLIUM Routine 04/20/2023 8:40 AM EDT documented in this encounter Results * DARK GREEN TOP TUBE (04/20/2023 8:40 AM EDT) Blood BLOOD SPECIMEN / Unknown 04/20/2023 8:40 AM EDT 04/21/2023 11:54 AM EDT us Ruperto Emerson MD LABORATORY Final Resul t [facility] [address] [address], * DARK GREEN TOP TUBE (04/20/2023 8:40 AM EDT) Blood BLOOD SPECIMEN / Unknown 04/20/2023 8:40 AM EDT 04/21/2023 11:54 AM EDT Ruperto Emerson MD LABORATORY Final Resul t Performing Organization Address [facility]/ZIP Co de Phone Number [facility] [address] [address], [place] * DARK GREEN TOP TUBE (04/20/2023 8:40 AM EDT) Blood BLOOD SPECIMEN / Unknown 04/20/2023 8:40 AM EDT 04/21/2023 11:54 AM EDT Ruperto Emerson MD LABORATORY Final Resul t Performing Organization Address [facility]/ZIP Co de Phone Number [facility] [address] [address], [place] * LPT TO BERYLLIUM BLD (04/20/2023 8:40 AM EDT) PHA Stim Index Blood 164 >50 SI 04/20 10:40 AM EDT [facility] BE 1.0 uM D5 Blood 0.8 <3.0 SI 2022 10:40 AM EDT [facility] BE 1.0 uM D6 Blood 0.9 <3.0 SI 2022 10:40 AM EDT [facility] BE 10 uM D5 Blood 0.8 <3.0 SI 023 10:40 AM EDT [facility] BE 10 uM D6 Blood 0.6 <3.0 SI 023 10:40 AM EDT [facility] BE 100 uM D5 Blood 1.6 <3.0 SI 2022 10:40 AM EDT [facility] BE 100 uM D6 Blood 0.4 <3.0 SI 2022 10:40 AM EDT [facility] C. Albicans LPT Bld 17.7 >2.0 SI 04/30 10:40 AM EDT [facility] LPT to Lizzette Interp Normal response to Beryllium. All six Beryllium indices are less than 3.0. 04/30/2023 10:40 AM EDT [facility] LPT to Lizzette Reviewed by Reviewed by Zaire Bundy, Ph.D D(ROBERTO CARLOS) 04/30/2023 10:40 AM EDT [facility] Phytohemagglutinin Blood 163,647 CPM 04/30/2023 10:40 AM EDT [facility] Blood BLOOD SPECIMEN / Unknown 04/20/2023 8:40 AM EDT 04/21/2023 11:53 AM EDT Narrative [facility] - 04/30/2023 10:40 AM EDT Lymphocyte proliferation test to Beryllium [...] developed and its performance characteristics determined by [facility]'s [facility]rijesh Bender [facility] [place] ([facility]). It has not been cleared or approved by the FDA. [facility] is regulated under CLIA as qualified to perform high complexity testing. This test is used for clinical purposes. It should not be regarded as investigational or for research. us Ruperto Emerson MD LABORATORY Final Resul t [facility] [address] [facility] [address] [place] [address], documented in this encounter Visit Diagnoses Not on filedocumented in this encounter Care Teams Molecular Modeler Relationship Specialty Start Date End Date Stefan Coto (Historical) [address] [place] [address] PCP - General 07/16/14 documented as of this encounter
--- OUTSIDE RECORDS SUMMARY | 2025-04-27 15:52 | XMS_ITS | Clinical Summary ---
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 Encounters Date Type Department Care Team Description 03/22/2025 Lab Requisition [facility] Laboratory [address] [place] [address] Ruperto Emerson MD 02/01/2025 Telephone Transplant Center [address] [place] [address] Coordinator, Liver Txp Referral - Donor Txp from Last 3 Months Social History Tobacco Use Types Packs/Day Years [...] Sign Reading Time Taken Comments Blood Pressure 133/84 02/27/2016 3:49 PM EDT Pulse 73 02/27/2016 3:49 PM EDT Temperature 36.9 C (98.4 F) 02/06/2016 10:45 AM EDT Respiratory Rate 16 02/27/2016 3:49 PM EDT Oxygen Saturation - - Inhaled Oxygen Concentration - - Weight 119.7 kg (264 lb) 02/27/2016 3:49 PM EDT Height 172.7 cm (5' 7.99 ) 02/27/2016 3:49 PM ED T Body Mass Index 40.15 02/27/2016 3:49 PM EDT Plan of Treatment Health Maintenance Due Date Last Done Comments Anxiety Screening 2001 Depression Screening 2001 HIV Screening 2001 Hepatitis C Screening 2001 DTaP,Tdap,Td Vaccine (1 - Tdap) 2002 Hepatitis B Vaccine (1 of 3 - 19+ 3-dose series) 07/13 Lipid Screening 2018 Influenza Vaccine (#1) 2025 Procedures Procedure Name Priority Date/Time Associated Diagnosis Comments DARK GREEN TOP TUBE Routine 03/21/2025 8 :50 AM EDT LPT TO BERYLLIUM BLD Routine 03/21/2025 8:50 AM EDT from Last 3 Months Results * DARK GREEN TOP TUBE (03/21/2025 8:50 AM EDT) Blood BLOOD SPECIMEN / Unknown 03/21/2025 8:50 AM EDT 03/22/2025 10:14 AM EDT us Ruperto Emerson MD LABORATORY Final Resul t [facility] [address] [address], [place] * LPT TO BERYLLIUM BLD (03/21/2025 8:50 AM EDT) PHA Stim Index Blood 367 >50 SI 03/30/2025 11:28 AM EDT [facility] BE 1.0 uM D5 Blood 1.2 <3.0 SI 03/30/2025 11:28 AM EDT [facility] BE 1.0 uM D6 Blood 1.0 <3.0 SI 03/30/2025 11:28 AM EDT [facility] BE 10 uM D5 Blood 0.9 <3.0 SI 03/30/2025 11:28 AM EDT [facility] BE 10 uM D6 Blood 1.1 <3.0 SI 03/30/2025 11:28 AM EDT [facility] BE 100 uM D5 Blood 0.8 <3.0 SI 03/30/2025 11:28 AM EDT [facility] BE 100 uM D6 Blood 1.5 <3.0 SI 03/30/2025 11:28 AM EDT [facility] LPT to Lizzette Interp Normal response to Beryllium. All six Beryllium indices are less than 3.0. 03/30/2025 11:28 AM EDT [facility] LPT to Lizzette Reviewed by Reviewed by Zaire Bundy, Ph.D D(ABMLI) 03/30/2025 11:28 AM EDT [facility] Blood BLOOD SPECIMEN / Unknown 03/21/2025 8:50 AM EDT 03/22/2025 10:14 AM EDT [facility] - 03/30/2025 11:28 AM EDT Lymphocyte [...] developed and its performance characteristics determined by [facility]'s Brijesh Bender [facility] Pathology and Laboratory Medicine [place] (RT [facility]). It has not been cleared or approved by the FDA. [facility] is regulated under CLIA as qualified to perform high complexity testing. This test is used for clinical purposes. It should not be regarded as investigational or for research. us Ruperto Emerson MD LABORATORY Final Resul t [facility] [address] [facility] [address] [place] [address], [place] from Last 3 Months Care Teams Microbiology Analyst Relationship Specialty Start Date End Date Stefan Coto (Historical) [address] [place] [address] PCP - General 07/16/14
--- OUTSIDE RECORDS SUMMARY | 2025-04-27 15:52 | XMS_ITS | Clinical Summary ---
Author Organization [facility] Healthcare Address [address] [place] [address] Care Team Providers Care Floor Framer Name Role Phone Unavailable Primary Care Provider Unavailabl e Social History Tobacco Use Types Packs/Day Years Used Date Smoking Tobacco: Never Assessed Sex and Gender Information Value Date Recorded Sex Assigned at Not on file Legal Sex Male 8:15 PM EDT Gender Identity Not on file Sexual Orientation Not on file Last Filed Vital Signs Vital Sign Reading Time Taken Comments Blood Pressure 154/100 12/14/2018 12:00 PM EDT Pulse - - Temperature - - Respiratory Rate - - Oxygen Saturation - - Inhaled Oxygen Concentration - - Weight 120 kg (265 lb) 12/14/2018 12:00 PM EDT Height 172.7 cm (5' 8 ) 12/14/2018 12:00 PM EDT Body Mass Index 40.29 12/14/2018 12:00 PM EDT Plan of Treatment Not on file
--- OUTSIDE RECORDS SUMMARY | 2025-04-27 15:52 | XMS_ITS | Clinical Summary ---
Author Organization [facility] Address [id number] [address] [place] [address] Care Team Providers Care Staff Certified Nurse Midwife Name Role Phone Stefan Coto MD Primary [...] on file Medical Devices Implanted Type Area Mandrel Puller Device Identifier Shelf Expiration Date Model / Serial / Lot Pshlk 3.5mm Bio-Pushlock [id number] Ea Only For Billonly - Sna - [id number] Implanted:Qty: 1 on 02/02/2018 by Bobby Means DO at [facility] [place] Right: Shoulder Arthrex 09/19/2019 AR-1926B / NA / [id number] Pshlk 3.5mm Bio-Pushlock [id number] Ea Only For Billonly - Andre-1926b - [id number] Implanted:Qty: 1 on 02/02/2018 by Bobby Means DO at [facility] [place] Right: Shoulder Arthrex 05/05/2019 AR-1926B / [id number] / [id number] Description:3.5 x 19.1 mm zuluaga ture anchor bio-pushlock Suture [place] Swivel - [id number] - [id number] Implanted:Qty: 1 on 02/02/2018 by Bobby Means DO at [facility] [place] Right: Shoulder Arthrex [id number] / [id number] / [id number] Insurance [facility] Care Teams Staff Certified Nurse Midwife Relationship Specialty Start Date End Date Stefan Coto MD PCP - General 01/10/18
--- OUTSIDE RECORDS SUMMARY | 2025-04-27 15:52 | XMS_ITS ---
Author Organization [facility] Address [address] [place] [address] Care Team Providers Care Casino Enforcement Agent Name Role Phone Stefan Coto (Historical) Primary Care Provide r Unavailable Transplant Episode Liver Potential Donor [facility] ([place], [place]) - [facility] Referred on 02/01/2025 Marked as Ineligible on 03/19/2025 Reason: Recipient Transplanted Liver CoordinatorAriel Lira Phone: N/A Fax: N/A Email: N/A Care Team Name Role Phone Fax Email Ariel Lira Liver Coordinator N/A N/A N/A Events Pre-Donation Referred: 02/01/2025
--- OUTSIDE RECORDS SUMMARY | 2025-04-27 15:52 | XMS_ITS | Clinical Summary ---
Author Organization [facility] Address [address] [place] [address] Phone Care Team Providers Care Workers Compensation Examiner Name Role Phone Stefan Coto MD Primary Care Provider [phone] Social History Tobacco Use Types Packs/Day Years [...] of Treatment Not on file Care Teams Workers Compensation Examiner Relationship Specialty Start Date End Date Stefan Coto MD [address] [place] [address] PCP - General 11/16/18
--- OUTSIDE RECORDS SUMMARY | 2025-04-27 15:52 | XMS_ITS | Patient Health Record ---
Author Organization [facility] Address [address] [place] [address] Care Team Providers Care Business Development Manager Name Role Phone Gerardo Pulido Primary Care Provider Allergies No Known Allergies Results Component Value Reference Range Notes NM caden perf SPECT rest str Reviewed date:04/17/2025 02:32:54 PM Interpretation: Performing Lab: Notes/Report: Source Facility: [place] [address] Nuclear Medicine Report Signed Patient: MALA GARCIA MR#: [id number] : 1985 Acct:[id number] Age/Sex: 39 / M ADM Date: 04/09/25 Loc: CARD Attending Dr: Yolanda Pulido M.D. Ordering Physician: Yolanda Pulido M.D. Date of Service: 04/09/25 Procedure(s): NM caden perf SPECT rest str Accession Number(s): [id number] cc: Yolanda Pulido M.D. Patient Name: MALA GARCIA MR#: [id number] : 1985 Exam Date: 04/09/2025 Ordering Doctor: DR YOLANDA PULIDO . RADIOLOGY REPORT PROCEDURE: NM CADEN PERF SPECT REST STR COMPARISON: None. INDICATIONS: DYSPNEA TECHNIQUE: Exam Description: Stress/Rest two day protocol gated SPECT Rest Imagin.4 mCi Tc-99m Cardiolite IV on 04/11/2025 Stress Imaging 25.1 mCi Tc-99m Cardiolite IV on 04/09/2025 Exercise Protocol: Андрей Heart Rate (bpm): Rest: 69 Max: 162 PMHR: 90 Blood Pressure: Rest: 150/86 Max: 166/86 Exercise Time: Minutes: 6 Seconds: 37 Stage Reached: Stage: 3 Mets 8.8 Symptoms: Rest and peak stress ECG findings were pending, and the exercise portion of the study was pending per attending physician [facility]. For more details, please see separate cardiac stress test report. FINDINGS: QUALITY OF STUDY: Adequate PERFUSION DEFECT: LOCATION: Apical SIZE: Small SEVERITY: Mild TYPE: Fixed likely representing physiological apical thinning WALL MOTION: LV SIZE: 110 mL. TID / TCD: 0.9 LVEF: Calculated EF 63%. SUMMARY: Myocardial perfusion imaging study is normal CONCLUSION: 1. Myocardial perfusion is normal with soft tissue attenuation 2. Global left ventricular systolic function is normal 3. No evidence of significant transient ischemic dilatation Dictated by: Haim Pinzon M.D. on 04/17/2025 at 08:56 Approved by: Haim Pinzon M.D. on 04/17/2025 at 08:58 Dictated By: Haim Pinzon M.D. Signed By: 04/17/25 0859 DD/ 0858 TD/TT: Concrete Craftsman: [place] [address] Nuclear Medicine Report Signed Patient: REYMUNDO GARCIA MR#: [id number] : 1985 Acct:[id number] Age/Sex: 39 / M ADM Date: 04/09/25 Loc: CARD Attending Dr: Yolanda Pulido M.D. Ordering Physician: Yolanda Pulido M.D. Date of Service: 04/09/25 Procedure(s): NM caden perf SPECT rest str Accession Number(s): [id number] cc: Yolanda Pulido M.D. Patient Name: MALA GARCIA MR#: [id number] : 1985 Exam Date: 04/09/2025 Ordering Doctor: DR YOLANDA PULIDO . RADIOLOGY REPORT PROCEDURE: NM CADEN PE RF SPECT REST STR COMPARISON: None. INDICATIONS: DYSPNEA TECHNIQUE: Exam Description: St ress/Rest two day protocol gated SPECT Rest Imagin.4 m Ci Tc-99m Cardiolite IV on 04/11/2025 Stress Imaging 25.1 mCi Tc-99m Cardiolite IV on 04/09/2025 Exercise Protocol: Андрей Heart Rate (bpm): Re st: 69 Max: 162 PMHR: 90 Blood Pressure: Rest : 150/86 Max: 166/86 Exercise Time: Minut es: 6 Seconds: 37 Stage Reached: Stage : 3 Mets 8.8 Symptoms: Rest and peak stress ECG findings were pending, and the exercise portion of the study was pendin g per attending physician [facility]. For more details, please see separate cardiac stress test report. FINDINGS: QUALITY OF STUDY: Adequate PERFUSION DEFECT: LOCATION: Apical SIZE: Small SEVERITY: Mild TYPE: Fixed likely r epresenting physiological apical thinning WALL MOTION: LV SIZE: 110 mL. TID / TCD: 0.9 LVEF: Calculated EF 63%. SUMMARY: Myocardial perfusion imaging study is normal CONCLUSION: 1. Myocardial perfus ion is normal with soft tissue attenuation 2. Global left ventr icular systolic function is normal 3. No evidence of si gnificant transient ischemic dilatation Dictated by: Haim thapa M.D. on 04/17/2025 at 08:56 Approved by: Haim thapa M.D. on 04/17/2025 at 08:58 Dictated By: Haim Pinzon M.D. Signed By: 04/17/25 0859 DD/ 0858 TD/TT: Concrete Craftsman: Reason For Referral No Information Medications Medication SIG (Take, Route, Fr equency, Duration) Notes Start Date End Date Status Protonix 40 MG 1 tablet Orally Ever y Evening for 30 day(s) PRN 04/12/2023 Active Social History Tobacco Use: Social History Observation Description Date Details (start date - stop date) Never Smoker NA - NA Tobacco Use/Smoking Question Answer Notes Patient is a nonsmoker Alcohol Screen (Audit-C) Question Answer Notes Did you have a drink contain ing alcohol in the past year? Yes How often did you have 6 or more drinks on one occasion in the past year? Never (0 point) How many drinks did you have on a typical day when you were drinking in the past year? 1 or 2 drinks (0 point) How often did you have a dri nk containing alcohol in the past year? Monthly (2 points) Points 2 Interpretation Negative AUDIT-C (Standard) Question Answer Notes Did you have a drink containing alcohol in the p ast year? 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 Problem Cardiomegaly (3229725) Cardiomegaly (I51.7) Active confirmed Problem 164453951 Diverticulosis o f large intestine without perforation or abscess without bleeding (K57.30) Active confirmed Problem Obstructive sleep apnea syndrome (34334974) KJ (obstructive sleep apnea) (G47.33) Active confirmed Problem Irritable bowel syndrome (27400883) IBS (irritable bowel syndrome) (K58.9) Active confirmed Problem Well adult (770558696) Well adult (Z00.00) Active confirmed Problem Paresthesia (40615090) Paresthesia (R20.2) Active confirmed Problem Wrist pain (70729465) Wrist pain, acute (M25.539) Active confirmed Problem 97781952451262439 Carpal tunnel syndrome, bilateral upper limbs (G56.03) Active confirmed Problem 081478742 Body mass index [BMI] 40.0-44.9, adult (Z68.41) [...] N/A Encounters Encounter Location Date Provider Diagnosis [facility] [address] [place] [address] 05/12/2024 Gerardo aubrey [facility] [address] [place] [address] 04/17/2025 Gerardo Pulido [facility] [address] [place] [address] 03/21/2025 Gerardo Pulido Dyspnea R06.00 and Well adult Z00.00 Assessments [...] Insured Coverage Start Date Coverage End Date R [address] [address] [place] [address] [id number] Mala Garcia Self - patient is the insured 3 Medical (General) History Medical History History ICD Code Shingles B02.9 KJ (obstructive sleep apnea) G47.33 Rotator Cuff Tear Adenocarcinoma Appendix IBS (irritable bowel syndrome) K58.9 Cardiomegaly I51.7 Concussion S06.0X9A Neoplasm of uncertain behavior of append ix D37.3 Surgical History Surgery Date(Month/Year) EGD/Colonoscopy 12/07/2012 Bicep Tenotomy Distal Splenrenal Shunt Placement Hospitalization History Reason Date(Month/Year) See above
[2025-04-27 16:09] LABS: Hematocrit 40.4 % (42.0-54.0); Hemoglobin 13.4 g/dL (14.0-18.0); Immature Granulocytes Abs Auto 0.02 10^3/uL (0.00-0.03); Immature Granulocytes Pct Auto 0.2 % (0.0-0.5); Lymphocytes Absolute Auto 3.9 10^3/uL (1.2-3.8); Mean Corpuscular HGB Conc 33.2 g/dL (29.9-35.2); Mean Corpuscular Hemoglobin 29.7 pg (25.9-34.0); Mean Corpuscular Volume 89.6 fL (80.0-94.0); Platelet Count 255 10^3/uL (150-450); Red Blood Count 4.51 10^6/uL (4.70-6.10); White Blood Count 11.0 10^3/uL (4.0-11.0)
[2025-04-27 16:35] LABS: Alanine Aminotransferase 59 U/L (16-63); Albumin Globulin Ratio 1.0; Albumin Level 4.0 g/dL (3.4-5.0); Alkaline Phosphatase 61 U/L (46-116); Anion Gap 12.5; Aspartate Amino Transferase 22 U/L (15-37); Blood Urea Nitrogen 16.0 mg/dL (7.0-18.0); Calcium 9.4 mg/dL (8.5-10.1); Carbon Dioxide 26.4 mmol/L (21.0-32.0); Chloride 105 mmol/L (98-107); Cholesterol 166 mg/dL (<=200); Estimated GFR (African America >60 (>=60 mL/min/1.73m^2); Estimated GFR (Non-African Ame >60 (>=60 mL/min/1.73m^2); Free T3 3.13 pg/mL (2.18-3.98); Globulin 3.9 g/dL; Glucose 95 mg/dL (74-106); HDL Cholesterol 43 mg/dL (40-60); NT Pro B Type Natriuretic Pept 68.0 pg/mL (<=450.0); Potassium 3.9 mmol/L (3.5-5.1); Sodium 140 mmol/L (136-145); Thyroid Stimulating Hormone 1.191 uIU/mL (0.358-3.740); Total Protein 7.9 g/dL (6.4-8.2); Triglycerides 93 mg/dL (<=150); VLDL CHOLESTEROL 18.6 mg/dL
== END 2025-04-27 15:51 | disposition home or self-care (01) ==
LOC: LAB 15:50
PROVIDERS: PCP Family Medicine; Visit Provider Family Medicine
DX: Z00.00 Encounter for general adult medical examination without abnormal findings (principal)
CPT/HCPCS: 36415; 80053; 80061; 83036; 83525; 83880; 84436; 84443; 84481; 84484; 85025

== ENCOUNTER 2025-06-25 09:24 | Outpatient (OUT) | payer OTHER, SELFPAY ==
--- OUTSIDE RECORDS SUMMARY | 2025-06-25 09:26 | XMS_ITS | Encounter Summary ---
Author Organization [facility] Address [address] [place] [address] Care Team Providers Care Director State Pharmacy Name Role Phone Stefan Coto (Historical) Primary Care Provide r Unavailable Source Comments In the event this information is protected by the Federal Confidentiality of Alcohol and Drug AbusePatient Records regulations: The Federal rules restrict any use of the information to criminally investigate or prosecute any alcohol or drug abuse patient.[facility] Encounter Details Date Type Department Care Team (Late st Contact Info) Description 03/22/2025 Lab Requisition [facility] Laboratory [address] [place] [address] [place] [address] [place] [address] Social History Tobacco Use Types Packs/Day Years [...] Ruperto Emerson MD LABORATORY Final Resul t [facility] [address] [address], * LPT TO BERYLLIUM BLD (03/21/2025 8:50 AM EDT) PHA Stim Index Blood 367 >50 SI 03/30/2025 11:28 AM EDT [facility] BE 1.0 uM D5 Blood 1.2 <3.0 SI 03/30/2025 11:28 AM EDT [facility] BE 1.0 uM D6 Blood 1.0 <3.0 SI 03/30/2025 11:28 AM EDT [facility] BE 10 uM D5 Blood 0.9 <3.0 SI 03/30/2025 11:28 AM EDT [facility] BE 10 uM D6 Blood 1.1 <3.0 SI 03/30/2025 11:28 AM EDT [facility] BE 100 uM D5 Blood 0.8 <3.0 SI 03/30/2025 11:28 AM EDT [facility] BE 100 uM D6 Blood 1.5 <3.0 SI 03/30/2025 11:28 AM EDT [facility] LPT to Lizzette Interp Normal response to Beryllium. All six Beryllium indices are less than 3.0. 03/30/2025 11:28 AM EDT [facility] LPT to Lizzette Reviewed by Reviewed by Zaire Bundy, Ph.D D(VIKI) 03/30/2025 11:28 AM EDT [facility] Blood BLOOD SPECIMEN / Unknown 03/21/2025 8:50 AM EDT 03/22/2025 10:14 AM EDT [facility] - 03/30/2025 11:28 AM EDT [...] developed and its performance characteristics determined by [facility]'s Brijesh Bender [facility] and Laboratory Medicine [place] (RT PLMI). It has not been cleared or approved by the FDA. [facility] is regulated under CLIA as qualified to perform high complexity testing. This test is used for clinical purposes. It should not be regarded as investigational or for research. us Ruperto Emerson MD LABORATORY Final Resul t [facility] [address] [facility] [address] [place] [address], documented in this encounter Visit Diagnoses Not on filedocumented in this encounter Care Teams Director State Pharmacy Relationship Specialty Start Date End Date Stefan Coto (Historical) [address] [place] [address] PCP - General 07/16/14 documented as of this encounter
--- OUTSIDE RECORDS SUMMARY | 2025-06-25 09:26 | XMS_ITS | Clinical Summary ---
Author Organization [facility] Address [address] [place] [address] Phone Care Team Providers Care Deputy District Customs Director Name Role Phone Stefan Coto MD Primary Care Provider [phone] Social History Tobacco Use Types Packs/Day Years [...] of Treatment Not on file Care Teams Deputy District Customs Director Relationship Specialty Start Date End Date Stefan Coto MD [address] [place] [address] PCP - General 11/16/18
--- OUTSIDE RECORDS SUMMARY | 2025-06-25 09:26 | XMS_ITS | Clinical Summary ---
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
--- OUTSIDE RECORDS SUMMARY | 2025-06-25 09:26 | XMS_ITS | Encounter Summary ---
Author Organization [facility] Address [address] [place] [address] Care Team Providers Care Livestock Farmers Name Role Phone Stefan Coto (Historical) Primary Care Provide r Unavailable Source Comments In the event this information is protected by the Federal Confidentiality of Alcohol and Drug AbusePatient Records regulations: The Federal rules restrict any use of the information to criminally investigate or prosecute any alcohol or drug abuse patient.[facility] Encounter Details Date Type Department Care Team (Late st Contact Info) Description 04/21/2023 Lab Requisition [facility] Laboratory [address] [place] [address] [place] [address] [place] [address] Social History Tobacco Use Types Packs/Day Years [...] Ruperto Emerson MD LABORATORY Final Resul t [facility] [address] [address], * DARK GREEN TOP TUBE (04/20/2023 8:40 AM EDT) Blood BLOOD SPECIMEN / Unknown 04/20/2023 8:40 AM EDT 04/21/2023 11:54 AM EDT Ruperto Emerson MD LABORATORY Final Resul t Performing Organization Address [facility]/ZIP Co de Phone Number [facility] [address] [address], [place] * DARK GREEN TOP TUBE (04/20/2023 8:40 AM EDT) Blood BLOOD SPECIMEN / Unknown 04/20/2023 8:40 AM EDT 04/21/2023 11:54 AM EDT Ruperto Emerson MD LABORATORY Final Resul t Performing Organization Address [facility]/ZIP Co de Phone Number [facility] [address] [address], [place] * LPT TO BERYLLIUM BLD (04/20/2023 8:40 AM EDT) PHA Stim Index Blood 164 >50 SI 04/20 10:40 AM EDT [facility] BE 1.0 uM D5 Blood 0.8 <3.0 SI 2022 10:40 AM EDT [facility] BE 1.0 uM D6 Blood 0.9 <3.0 SI 2022 10:40 AM EDT [facility] BE 10 uM D5 Blood 0.8 <3.0 SI 023 10:40 AM EDT [facility] BE 10 uM D6 Blood 0.6 <3.0 SI 023 10:40 AM EDT [facility] BE 100 uM D5 Blood 1.6 <3.0 SI 2022 10:40 AM EDT [facility] BE 100 uM D6 Blood 0.4 <3.0 SI 2022 10:40 AM EDT [facility] C. Albicans LPT Bld 17.7 >2.0 SI 04/30 10:40 AM EDT [facility] LPT to Lizzette Interp Normal response to Beryllium. All six Beryllium indices are less than 3.0. 04/30/2023 10:40 AM EDT [facility] LPT to Lizzette Reviewed by Reviewed by Zaire Bundy, Ph.D D(ROBERTO CARLOS) 04/30/2023 10:40 AM EDT [facility] Phytohemagglutinin Blood 163,647 CPM 04/30/2023 10:40 AM EDT [facility] Blood BLOOD SPECIMEN / Unknown 04/20/2023 8:40 AM EDT 04/21/2023 11:53 AM EDT Narrative [facility] - 04/30/2023 10:40 AM EDT Lymphocyte [...] developed and its performance characteristics determined by [facility]'s Brijesh Bender [facility] [place] (RT PLMI). It has not been cleared or approved by the FDA. [facility] is regulated under CLIA as qualified to perform high complexity testing. This test is used for clinical purposes. It should not be regarded as investigational or for research. us Ruperto Emerson MD LABORATORY Final Resul t [facility] [address] [facility] [place] [address] [place] [address], documented in this encounter Visit Diagnoses Not on filedocumented in this encounter Care Teams Livestock Farmers Relationship Specialty Start Date End Date Stefan Coto (Historical) [address] [place] [address] PCP - General 07/16/14 documented as of this encounter
--- OUTSIDE RECORDS SUMMARY | 2025-06-25 09:26 | XMS_ITS | Clinical Summary ---
Author Organization [facility] Healthcare Address [address] [place] [address] Care Team Providers Care Policeman Name Role Phone Unavailable Primary Care Provider [...]
--- NOTE | 2025-06-25 09:37 | CT_ITS ---
CT/CT chest high res IMPRESSION: No CT evidence of interstitial lung disease. No acute process. Impression dictated by: Bin Ruvalcaba Jr., D.O. 06/25/2025 10:58 AM Dictation Location: [place] [address] Electronically authenticated by: [id number] Date: 06/25/2025 10:58
== END 2025-06-25 09:25 | disposition home or self-care (01) ==
LOC: CT 09:24
PROVIDERS: PCP Family Medicine
DX: J21.9 Acute bronchiolitis, unspecified (principal)
CPT/HCPCS: 71250

== ENCOUNTER 2025-06-29 08:57 | Outpatient (OUT) | payer OTHER, SELFPAY ==
[2025-06-29 09:13] LABS: Hemoglobin 14.2 g/dL (14.0-18.0)
[2025-06-29 09:47] LABS: ABG PCO2 39.5 mmHg (35.0-45.0)
[2025-06-29 09:48] LABS: Allen Test POSITIVE (POSITIVE); HCO3 ABG 24.9 mmol/L (22.0-26.0); O2 Mode ROOM AIR; Oxygen Saturation ABG 96.8 %; PO2 ABG 79.3 mmHg (80.0-100.0); Puncture Site RR
[2025-06-29] MEDS: ALBUTEROL SULFATE 2.5 MG/3 ML VIAL NEB IH (10:48)
== END 2025-06-29 08:58 | disposition home or self-care (01) ==
LOC: CARD 08:57
PROVIDERS: PCP Family Medicine
DX: J21.9 Acute bronchiolitis, unspecified (principal)
CPT/HCPCS: 36415; 36600; 82805; 85018; 94060; 94726; 94729

== ENCOUNTER 2025-07-20 12:57 | Outpatient (OUT) | payer OTHER, SELFPAY ==
--- OUTSIDE RECORDS SUMMARY | 2025-07-20 12:59 | XMS_ITS | Clinical Summary ---
Author Organization [employer] [facility] tem Address [id number] [address] [place] [address] Care Team Providers Care Golf Course Starter Name Role Phone Stefan Coto MD Primary Care Provider [phone] Allergies No known active allergies Medications MedicationSigDispense QuantityRefillsLast FilledStart DateEnd DateStatus phentermine (ADIPEX-P) 37.5 mg tablet Take 37.5 mg by mouth every morning before breakfast.Active ibuprofen (ADVIL) 200 mg tablet Take 200 mg by mouth every 6 (six) hours as needed for pain.Active acetaminophen (TYLENOL) 500 mg tablet Take 500 mg by mouth every 6 (six) hours as needed for pain.Active Family History Medical HistoryRelationNameCommentsCancerFatherCancerMotherRelationNameStatus CommentsFatherDeceasedMotherDeceased Social History Tobacco UseTypesPacks/DayYears UsedDateSmoking Tobacco: NeverSmokeless Tobacco: NeverAlcohol UseStandard Drinks/WeekCommentsYes0 (1 standard drink = 0.6 oz pure alcohol)rarelyChildcareAnswerDate SdjpmegaIzwfenacjKwibntw14/12/2019Employment AnswerDate SfgqgpxnUvllpldqhvXhcekyz00/12/2019Purpose - LifeAnswerDate Recorded Purpose and direction in clrhPltksom04/11/2021ex and Gender InformationValue Date RecordedSex Assigned at BirthNot on fileLegal EygPwio1704/25/2015 11:33 AM EDTGender IdentityNot on fileSexual OrientationNot on file Last Filed Vital Signs Vital SignReadingTime TakenCommentsBlood Hdkrodvc002/9105 2:45 PM EDT Njkaf9668 1:55 PM TIBPhsnenyzmhm50.8 ??C (96.4 ??F)02/02/2018 1:25 PM EDTRespiratory Niff933502/02/2018 1:55 PM EDTOxygen Friwmmfqil56%02/02/2018 2:45 PM EDTInhaled Oxygen Concentration--Hhzphg881.5 kg (281 lb)02/02/2018 9:22 AM BNASwoqjt856.7 cm (5' 8 )02/02/2018 9:22 AM EDTBody Mass Index42.7302/02/2018 9:22 AM EDT Plan of Treatment Not on file Medical Devices ImplantedTypeAreaManufacturerDevice IdentifierShelf Expiration DateModel / Serial / LotPshlk 3.5mm Bio-Pushlock [id number] Ea Only For Billonly - Sna - [id number] Implanted:Qty: 1 on 02/02/2018 [facility]: CvffogbyRdgwnym01/31/2019AR-1926B / NA / [id number] 3.5mm Bio-Pushlock [id number] Ea Only For Billonly - Andre-1926b - [id number] Implanted:Qty: 1 on 02/02/2018 [facility]: XdepscteBetddea07/16/2019AR-1926B / AR-[id number] / [id number]:3.5 x 19.1 mm suture anchor bio-pushlockSuture Beulah Swivel - [id number] - [id number] Implanted:Qty: 1 on 02/02/2018 [facility] [id number] / [id number] / [id number] [place] [address] Care Teams Team MemberRelationshipSpecialtyStart DateEnd Stefan Coto MD [facility]01/10/18
--- OUTSIDE RECORDS SUMMARY | 2025-07-20 13:00 | XMS_ITS | Clinical Summary ---
Author Organization [facility] Address [address] [place] [address] Care Team Providers Care Data Integration Architect Name Role Phone Stefan Coto (Historical) Primary Care Provide r Unavailable Allergies No known active allergies Medications MedicationSigDispense QuantityRefillsLast FilledStart DateEnd DateStatus pantoprazole DR (PROTONIX) 40 mg tablet 01/10/2016Active tiZANidine (ZANAFLEX) 4 mg tablet 12/30/2015Active Active Problems ProblemNoted DateDiagnosed DateCarcinoid tumor of /27/2014 Social History Tobacco UseTypesPacks/DayYears UsedDateSmoking Tobacco: NeverSmokeless Tobacco: NeverAlcohol UseStandard Drinks/WeekCommentsNo0 (1 standard drink = 0.6 oz pure alcohol)Sex and Gender InformationValueDate RecordedSex Assigned at BirthNot on fileLegal OugTcxn05/24/2014 10:49 AM EDTGender IdentityNot on fileSexual OrientationNot on file Last Filed Vital Signs Vital SignReadingTime TakenCommentsBlood Cnjpibcb702/8406 3:49 PM EDT Pnghs478402/27/2016 3:49 PM TSLAukksmnlywz93.9 ??C (98.4 ??F)02/06/2016 10:45 AM EDTRespiratory Tfdj067402/27/2016 3:49 PM EDTOxygen Saturation--Inhaled Oxygen Concentration--Zdgnbh104.7 kg (264 lb)02/27/2016 3:49 PM YSRCttpsc892.7 cm (5' 7.99 )02/27/2016 3:49 PM EDTBody Mass Index40.1506 3:49 PM EDT Plan of Treatment Health MaintenanceDue DateLast DoneCommentsAnxiety Sjtiabkww16/24/2001Depression Ptauebotm13/24/2001HIV Qhiwpzcft72/24/2001Hepatitis C Wcrahgaag12/24/2001 DTaP,Tdap,Td Vaccine (1 - Tdap)2002Hepatitis B Vaccine (1 of 3 - 19+ 3- dose series)2002HPV Vaccine (1 - 3-dose SCDM series)2010Lipid Yqspqvbsb37/24/2018Covid-19 Vaccine (1 - 2024- season)2025Influenza Vaccine (#1)2025 Care Teams Team MemberRelationshipSpecialtyStart DateEnd Date Stefan Coto (Historical) [address] [place] [address] PCP - Evgripr28/27/14
--- OUTSIDE RECORDS SUMMARY | 2025-07-20 13:00 | XMS_ITS | Patient Health Record ---
Author Organization [facility] [place] Address [address] [place] [address] Care Team Providers Care Leadite Worker Name Role Phone Gerardo Pulido Primary Care Provider Allergies No Known Allergies Results Component Value Reference Range Notes NM maggie perf SPECT rest str Reviewed date:04/17/2025 02:32:54 PM Interpretation: Performing Lab: Notes/Report: Source Facility: [place] [address] Nuclear Medicine Report Signed Patient: MALA GARCIA MR#: [id number] : 1985 Acct:[id number] Age/Sex: 39 / M ADM Date: 04/09/25 Loc: CARD Attending Dr: Yolanda Pulido M.D. Ordering Physician: Yolanda Pulido M.D. Date of Service: 04/09/25 Procedure(s): NM maggie perf SPECT rest str Accession Number(s): [id number] cc: Yolanda Pulido M.D. Patient Name: MALA GARCIA MR#: [id number] : 1985 Exam Date: 04/09/2025 Ordering Doctor: DR YOLANDA PULIDO . RADIOLOGY REPORT PROCEDURE: NM MAGGIE PERF SPECT REST STR COMPARISON: None. INDICATIONS: [...] the study was pending per attending physician [facility]. For more details, please see [...] Signed By: 04/17/25 0859 DD/ 0858 TD/TT: Hospitalist Physician: BNP Reviewed date:04/29/2025 07:45:23 PM Interpretation: Performing Lab: Notes/Report: [facility] , NT Pro B Type Natriuretic Pept 68.0 <=450.0 pg /mL Performing Lab:see noteML - [facility] LBCBC AUTO DIFF Reviewed date:04/29/2025 07:45:23 PM Interpretation: Performing Lab: Notes/Report: [facility] ,White Blood Count11.04.0-11.0 10 3/uLRed Blood Count4.514.70-6.10 10 6/uL Vkzkejhwsv22.414.0-18.0 g/hVCejsxqqpvh63.442.0-54.0 %Mean Corpuscular Uavhro57.6 80.0-94.0 fLMean Corpuscular Dbwkstacrm10.725.9-34.0 pgMean Corpuscular HGB Conc 33.229.9-35.2 g/dLRed Cell Distribution Width13.211.0-15.0 %Platelet Dnrcl197 150-450 10 3/uLMean Platelet Volume9.19.5-13.5 fLNeutrophils Percent Auto53.3 43.0-75.0 %Lymphocytes Percent Auto35.620.5-60.0 %Monocytes Percent Auto8.31.7- 12.0 %Eosinophils Percent Auto2.20.9-7.0 %Basophils Percent Auto0.40.2-2.0 % Immature Granulocytes Pct Auto0.20.0-0.5 %Neutrophils Absolute Auto5.91.4-6.5 10 3/uLLymphocytes Absolute Auto3.91.2-3.8 10 3/uLMonocytes Absolute Auto0.90.3-0.8 10 3/uLEosinophils Absolute Auto0.20.0-0.7 10 3/uLBasophils Absolute Auto0.00.0- 0.1 10 3/uLImmature Granulocytes Abs Auto0.020.00-0.03 10 3/uLPerforming Lab:see note - [facility] LBFREE T3 Reviewed date:04/29/2025 07:45:23 PM Interpretation: Performing Lab: Notes/Report: [facility] ,Free T33.132.18-3.98 pg/mLPerforming Lab:see noteMer[facility] LB GLYCOHEMOGLOBIN A1C Reviewed date:04/29/2025 07:45:23 PM Interpretation: Performing Lab: Notes/Report: [facility] ,Glycohemoglobin A1C5.54.5-6.2 % ADA RECOMMENDED LIMIT 4.0 - 6.0 ADA THERAPEUTIC TARGET < 7.0 ACTION SUGGESTED > 7.0 Estimated Average Vmyhkuf698Hpwzzhcypx Lab:see note - [facility] LB INSULIN Reviewed date:04/29/2025 07:45:23 PM Interpretation: Performing Lab: Notes/Report: [facility] ,Nkfgkiq20.32.6-24.9 uIU/mL Performed at: [address] [id number] Hospital Social Worker: Warner William PhD, Phone: [phone] Performing Lab:see farrahARB[facility] LBLIPID PROFILE Reviewed date:04/29/2025 07:45:23 PM Interpretation: Performing Lab: Notes/Report: [facility] ,Vsewfiogpuslm79<=150 mg/qNEixrhvkksrc984<=200 mg/dLHDL Quzdmtihjje7396-02 mg/dL > or =60 mg/dl - LOW CARDIOVASCULAR RISK <40 mg/dl - HIGH CARDIOVASCULAR RISK LDL Cholesterol Pxtneouura556.4 <100 mg/dl OPTIMAL 100-129 mg/dl NEAR OR ABOVE OPTIMAL 130-159 mg/dl BORDERLINE HIGH 160-189 mg/dl HIGH >190 mg/dl VERY HIGH VLDL NKKBXUCWQYF25.6Chol HDL Ratio3.9 3.3 - 4.4 LOW RISK 4.4 - 7.1 AVERAGE RISK 7.1 - 11.0 MODERATE RISK >11.0 HIGH RISK Performing Lab:see noteML - [facility] LBPROF 14(COMP METB) Reviewed date:04/29/2025 07:45:23 PM Interpretation: Performing Lab: Notes/Report: [facility] ,Ujdsdu074862-589 mmol/LPotassium3.93.5-5.1 mmol/GDtwoodpo49838-255 mmol/LCarbon Gfgkgrx30.421.0-32.0 mmol/LAnion Gap12.5Pqptujz2817-702 mg/dLBlood Urea Nitrogen 16.07.0-18.0 mg/dLCreatinine0.950.70-1.30 mg/dLEstimated GFR ( Breann>60 >=60 mL/min/1.73m 2Estimated GFR (Non- Christelle>60>=60 mL/min/1.73m 2BUN Creatinine Ratio16.1Uuqqrkq1.48.5-10.1 mg/dLBilirubin Total0.80.2-1.0 mg/dL Aspartate Amino Nietquydssr8687-04 U/LAlanine Hecbrkpjdozuidyw4721-70 U/L Alkaline Rvfzvwuxgib4169-219 U/LTotal Protein7.96.4-8.2 g/dLAlbumin Level4.03.4- 5.0 g/dLGlobulin3.9Albumin Globulin Ratio1.0Performing Lab:see note - [facility] LBT4 Reviewed date:04/29/2025 07:45:23 PM Interpretation: Performing Lab: Notes/Report: [facility] ,T4 Thyroxine6.604.50-12.10 ug/dLPerforming Lab:see noteML - [facility] LBTSH Reviewed date:04/29/2025 07:45:23 PM Interpretation: Performing Lab: Notes/Report: [facility] ,Thyroid Stimulating Hormone1.1910.358-3.740 uIU/mLPerforming Lab:see note - [facility] LBTroponin I High Sensitivity Reviewed date:04/29/2025 07:45:23 PM Interpretation: Performing Lab: Notes/Report: [facility] ,Troponin I High Sensitivity5.84.0-76.1 pg/mL CUT-OFF POINTS HAVE BEEN ESTABLISHED BASED ON THE FOURTH UNIVERSAL DEFINITION OF MYOCARDIAL INFARCTION. THE UPPER REFERENCE LIMIT (URL) OF TROPONIN, DEFINED THE 99TH PERCENTILE OF cTnI DISTRIBUTION IN A REFERENCE POPULATION, HAS BEEN CONFIRMED THE DECISION THRESHOLD FOR NV DIAGNOSIS. 99TH PERCENTILE = 76.2 PG/ML NOTE: HIGH-SENSITIVITY TROPONIN ASSAY IS NOT INTENDED TO BE USED IN ISOLATION BUT SHOULD BE INTERPRETED IN CONJUNCTION WITH OTHER DIAGNOSTIC AND CLINICAL INFORMATION. Performing Lab:see note - [facility] LBCA echo doppler complete Reviewed date:04/29/2025 07:45:23 PM Interpretation: Performing Lab: Notes/Report: Source Facility: [place] [address] Cardiology Report Signed Patient: MALA GARCIA MR#: [id number] : 1985 Acct:[id number] Age/Sex: 39 / M ADM Date: 04/26/25 Loc: CARD Attending Dr: Yolanda Pulido M.D. Ordering Physician: Yolanda Pulido M.D. Date of Service: 04/26/25 Procedure(s): CA echo doppler complete Accession Number(s): [id number] cc: Yolanda Pulido M.D. Patient Name: MALA GARCIA MR#: [id number] : 1985 Exam Date: 04/26/2025 Ordering Doctor: DR YOLANDA PULIDO . ECHOCARDIOGRAM REPORT PROCEDURE: CA ECHO DOPPLER COMPLETE INDICATIONS: Dyspnea COMPARISON: None. DESCRIPTION: COMPLETE ECHOCARDIOGRAM Real-time transthoracic echocardiography with 2D, M-mode, spectral and color flow Doppler performed. QUALITY: Technical quality was adequate. LEFT VENTRICLE: Normal chamber size. Normal left ventricular wall thickness. Normal systolic function. LV EF: Normal left ventricular ejection fraction, (55%). DIASTOLIC: Normal diastolic function. ATRIAL SEPTUM: LEFT ATRIUM: Normal chamber size. RIGHT ATRIUM: Mild dilatation. RIGHT VENTRICLE: Mild dilatation. Normal right ventricular systolic function. TRICUSPID VALVE: Normal mobility and thickness. No stenosis with trivial regurgitation. No evidence of pulmonary hypertension. RVSP 32 mmHg MITRAL VALVE: Normal mobility and thickness. No evidence of mitral valve stenosis. There is no mitral annular calcification. No mitral regurgitation. AORTIC VALVE: Normal trileaflet appearance. No visible sclerosis. Normal leaflet mobility. No evidence of aortic valve stenosis. No aortic regurgitation. AORTIC ROOT: Normal diameter and appearance, measuring 3.1 cm. The ascending aorta is normal in size measuring 3.6 cm. PULMONIC VALVE: Normal thickness and mobility. No stenosis. Mild regurgitation. PERICARDIUM: No evidence of pericardial effusion. IVC: Normal in size, collapses with inspiration. PLEURA: CONCLUSION: 1. The left ventricle is normal in size and exhibits normal systolic function. LVEF is 55%. 2. The right ventricle appears mildly dilated and exhibits normal systolic function. 3. Mild right atrial dilatation. 4. Normal diastolic function. 5. Mild pulmonic regurgitation. 6. Normal right-sided pressures. Adult Echocardiography Procedure Report Left Ventricle LVEDD (3.7 - 5.6 cm): 5.39 cm LVESD (2.2 - 4.0 cm): 3.48 cm LVIVS thickness (0.6 - 1.2 cm): 0.87 cm LVPW thickness (0.5 - 1.0 cm): 0.9 cm e': 0.13 m/s E - e': 6.04 LVOT Max Gradient: 2.12 mm[Hg] LVOT Area (cm2): 0.73 m/s Peak Velocity (LVOT): 0.73 m/s LVOT Diameter 2.09 cm Left Atrium LA Volume Index (2D A2C): 26.79 ml/m2 Left Atrium Systolic Dimension: 4.87 cm Mitral Valve MV E to A Ratio: 0.99 Mitral Valve A-Wave Peak Velocity: 0.77 m/s Mitral Valve E-Wave Peak Velocity: 0.76 m/s Right Ventricle Aorta AO Root Diam: 3.11 cm Ascending Ao Diam: 3.60 cm Aortic Valve AoV Area (Peak Douglas): 1.54 cm2, 1.54 cm2 Peak Velocity(Antegrade Flow): 1.61 m/s Peak Gradient(Antegrade Flow): 10.42 mm[Hg] Tricuspid Valve Peak Velocity (Regurgitant Flow): 2.68 m/s Pulmonic Valve Mean Gradient: 2.75 mm[Hg], 2.67 mm[Hg] Mean Velocity: 0.77 m/s, 0.75 m/s Peak Gradient: 5.02 mm[Hg], 5.02 mm[Hg] Right Atrium Right Atrium Systolic Pressure: 75.09 ml, 75.09 ml Dictated by: Edwin Harper M.D. on 04/28/2025 at 19:48 Approved by: Edwin Harper M.D. on 04/28/2025 at 19:57 Dictated By: EDWIN HARPER Signed By: 04/28/251958 DD/ 56 TD/TT: Hospitalist Physician:CT chest high res Reviewed date:06/25/2025 12:45:27 PM Interpretation: Performing Lab: Notes/Report: Source Facility: [place] [address] CT Scan Report Signed Patient: MALA GARCIA MR#: [id number] : 1985 Acct:[id number] Age/Sex: 39 / M ADM Date: 06/25/25 Loc: CT Attending Dr: BlayneStaff Physician Roach Ordering Physician: Yann Delgado M.D. Date of Service: 06/25/25 Procedure(s): CT chest high res Accession Number(s): [id number] cc: Yolanda Pulido M.D. [place] [address] Patient Name: MALA GARCIA MRN: [id number] date: 1985 Sex: M Assigned Patient Location: CT Current Patient Location: CT Accession/Order Number: [id number] Exam Date: 06/25/2025 09:45 Report Date: 06/25/2025 10:58 At the request of: NON-STAFF PHYSICIAN Procedure: CT chest high res CT CHEST WITHOUT IV CONTRAST: High-resolution protocol. CLINICAL HISTORY: Bronchiolitis COMPARISON: None TECHNIQUE: Spiral images were obtained through the chest without IV contrast. High-resolution protocol was utilized with both supine and prone imaging. This CT exam was performed using one or more following dose reduction techniques: Automated exposure control, adjustment of the mA and/or kV according to patient size, or use of iterative reconstruction technique. FINDINGS: Mediastinum:Thoracic aorta appears normal in caliber. Pulmonary trunk appears nondilated. Residual thymic tissue is present. No lymphadenopathy. Calcified left hilar lymph nodes. No pericardial effusion. The esophagus is grossly unremarkable. Lungs:No consolidation pneumothorax or pleural effusion. No honeycombing bronchiectasis or septal thickening. Trachea and distal airways appear patent. No suspicious pulmonary nodule or mass. Expiratory phase imaging demonstrates mild air trapping. Abd:No acute findings. Soft tissues/Bones: No acute findings. Osseous structures demonstrate degenerative change. CT/CT chest high res IMPRESSION: No CT evidence of interstitial lung disease. No acute process. Impression dictated by: Bin Ruvalcaba Jr., D.O. 06/25/2025 10:58 AM Dictation Location: [place] [address] Electronically authenticated by: [id number] Y Date: 06/25/2025 10:58 Dictated By: Bin Ruvalcaba M.D. Signed By: 06/25/25 1101 DD/ 1058 TD/TT: Hospitalist Physician:BLOOD GASES BTY Reviewed date:06/29/2025 11:50:51 AM Interpretation: Performing Lab: Notes/Report: [facility] ,pH ABG7.4087.350-7.450ABG FJE456.535.0-45.0 mmHgPO2 ABG79.380.0-100.0 mmHgHCO3 ABG24.922.0-26.0 mmol/LBase Excess ABG0.2-2.0-2.0 mmol/LOxygen Saturation ABG 96.8Allen TestPOSITIVEPOSITIVEO2 ModeROOM AIRPuncture SiteRRPerforming Lab:see noteML - [facility] LBHEMOGLOBIN Reviewed date:06/29/2025 11:50:51 AM Interpretation: Performing Lab: Notes/Report: [facility] ,Rndtazxmls53.214.0-18.0 g/dLPerforming Lab:see noteML - [facility] LB Reason For Referral No Information Medications Medication SIG (Take, Route, Frequency, Duration) Notes Start Date End Date Status Protonix 40 MG 1 tablet Orally Every Evening; Duration : 30 day(s) PRN 04/12/2023 ActiveFerrous Sulfate 325 (65 Fe) MG1 tablet Orally twice a day; Duration: 30 days5Active Social History Tobacco Use: Social History Observation Description Date Details (start date - stop date) Never Smoker NA - NA Tobacco Use/Smoking Question Answer Notes Patient is a nonsmoker Alcohol Screen (Audit-C) Question Answer Notes Did you have a drink containing alcohol in the p ast year? Yes How often did you have 6 or more drinks on one occasion in the past year?Never (0 point)How many drinks did you have on a typical day when you were drinking in the past year?1 or 2 drinks (0 point)How often did you have a drink containing alcohol in the past year?Monthly (2 points)Edjzjz0AmaphzhzczyzekUhveyzjvPYIIQ-M (Standard) Question Answer Notes Did you have a drink containing alcohol in the p ast year? 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) ActiveconfirmedProblemCardiomegaly (3204234)Cardiomegaly (I51.7)Activeconfirmed ProblemDiverticular disease of colon (832738429)Diverticulosis of large intestine without perforation or abscess without bleeding (K57.30)Active confirmedProblemObstructive sleep apnea syndrome (81438313)KJ (obstructive sleep apnea) (G47.33)ActiveconfirmedProblemIrritable bowel syndrome (59029682) IBS (irritable bowel syndrome) (K58.9)ActiveconfirmedProblemWell adult (307505677)Well adult (Z00.00)ActiveconfirmedProblemParesthesia (11802153) Paresthesia (R20.2)ActiveconfirmedProblemWrist pain (36046238)Wrist pain, acute (M25.539)ActiveconfirmedProblemCarpal tunnel syndrome (81885277)Carpal tunnel syndrome, bilateral upper limbs (G56.03)ActiveconfirmedProblemBody mass index 40+ - severely obese (866123183)Body mass index [BMI] 40.0-44.9, adult (Z68.41) Activeconfirmed Vital Signs Blood pressure diastolic 92 mm Hg 03/21/2025 Kduxsq45 in03/21/2025lood pressure seduwpst120 mm Hg03/21/20259477Huurkt246 lbs 03/21/2025BMI49.41 kg/m203/21/2025 Procedures Procedure Date Ordered Date Performed Result Body Sit e CARDIO Stress Test - Cardiolite 03/21/2025 N/ACARDIO Gafbfqefckmaxn30/02/2025N/A Encounters Encounter Location Date Provider Diagnosis [facility] [address] [place] [address] 04/29/[address] [facility] [place] [address] [facility] [place] [address] [address] [place] [address]/02/2025Do HoyDyspnea R06.00 and Well adult Z00.00 Assessments Encounter Date Diagnosis (ICD Code) Assessment Notes Treatment Notes Treatment Clinical Notes Section Notes 03/21/2025 Dyspnea (ICD-10 - R06.00) 03/21/2025Well adult (ICD-10 - Z00.00) Plan Of Treatment Pending Test Test Name Order Date CMP (COMPLETE METABOLIC PANEL) 3 HEMOGLOBIN A1C (GLYCO) 03/12/2023 HEMOGLOBIN A1C (GLYCO) 03/21/2025 INSULIN, TOTAL 03/12/2023 LIPID PANEL (CHOL/TRIG/HDL/LDL) 03/12/20 23 LIPID PANEL (CHOL/TRIG/HDL/LDL) 03/21/20 25 CBC WITH [...] Date Coverage End Date [employer] [address] [address] [place] [address] [phone] [id number] Mala Garcia Self - patient is the insured 3 Medical (General) History Medical History History ICD Code Shingles B02.9 KJ (obstructive sleep apnea) 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
--- OUTSIDE RECORDS SUMMARY | 2025-07-20 13:00 | XMS_ITS | Clinical Summary ---
Author Organization [facility] Healthcare Address [address] [place] [address] Care Team Providers Care Wick Tender Name Role Phone Unavailable Primary Care Provider Unavailabl e Social History Tobacco UseTypesPacks/DayYears UsedDateSmoking Tobacco: Never AssessedSex and Gender InformationValueDate RecordedSex Assigned at BirthNot on fileLegal Sex Male12/02/2022 8:15 PM EDTGender IdentityNot on fileSexual OrientationNot on file Last Filed Vital Signs Vital SignReadingTime TakenCommentsBlood Ongmihin677/3478312/14/2018 12:00 PM EDT Pulse--Temperature--Respiratory Rate--Oxygen Saturation--Inhaled Oxygen Concentration--Ggqiza578 kg (265 lb)12/14/2018 12:00 PM HWWFymocp664.7 cm (5' 8 )12/14/2018 12:00 PM EDTBody Mass Index40.29012/14/2018 12:00 PM EDT Plan of Treatment Not on file
--- OUTSIDE RECORDS SUMMARY | 2025-07-20 13:00 | XMS_ITS | Clinical Summary ---
Author Organization [facility] Address [address] [place] [address] Phone Care Team Providers Care Paralegal Instructor Name Role Phone Stefan Coto MD Primary Care Provider [phone] Social History Tobacco UseTypesPacks/DayYears UsedDateSmoking Tobacco: Never AssessedSex and Gender InformationValueDate RecordedSex Assigned at BirthNot on fileLegal Sex Male08/15/2022 10:26 AM ESTGender IdentityNot on fileSexual OrientationNot on file Last Filed Vital Signs Vital SignReadingTime TakenCommentsBlood Pressure--Pulse--Temperature-- Respiratory Rate--Oxygen Saturation--Inhaled Oxygen Concentration--Bgukdn631 kg (270 lb 15.1 oz)11/30/2018 7:44 AM [address]FYgxwfq453.7 cm (5' 7.99 )11/30/2018 7:44 AM EDTBody Mass Index41.21011/30/2018 7:44 AM EDT Plan of Treatment Not on file Care Teams Team MemberRelationshipSpecialtyStart DateEnd Date Stefan Coto MD [address] [facility] [place] [address] PCP - General11/16/18
[2025-07-20] MEDS: [UNRECOGNIZED DRUG - OTHER] 3 MG IH (13:26)
[2025-07-20] MEDS: [UNRECOGNIZED DRUG - OTHER] IH (13:39)
[2025-07-20] MEDS: [UNRECOGNIZED DRUG - OTHER] IH (13:39)
[2025-07-20] MEDS: [UNRECOGNIZED DRUG - OTHER] IH (13:39)
[2025-07-20] MEDS: [UNRECOGNIZED DRUG - OTHER] IH (13:43)
[2025-07-20] MEDS: [UNRECOGNIZED DRUG - OTHER] IH (13:46)
[2025-07-20] MEDS: ALBUTEROL SULFATE 2.5 MG/3 ML VIAL NEB IH (14:14)
== END 2025-07-20 12:58 | disposition home or self-care (01) ==
LOC: CARD 12:57
PROVIDERS: PCP Family Medicine
DX: J21.9 Acute bronchiolitis, unspecified (principal)
CPT/HCPCS: 95070; J7674

== ENCOUNTER 2025-08-13 13:37 | Outpatient (OUT) | payer OTHER, SELFPAY ==
--- OUTSIDE RECORDS SUMMARY | 2025-08-13 13:41 | XMS_ITS | Clinical Summary ---
Author Organization [facility] Address [address] [place] [address] Phone Care Team Providers Care Financial Systems Analyst Name Role Phone Stefan Coto MD Primary Care Provider [phone] Social History Tobacco UseTypesPacks/DayYears UsedDateSmoking Tobacco: Never AssessedSex and Gender InformationValueDate RecordedSex Assigned at BirthNot on fileLegal Sex Male08/15/2022 10:26 AM ESTGender IdentityNot on fileSexual OrientationNot on file Last Filed Vital Signs Vital SignReadingTime TakenCommentsBlood Pressure--Pulse--Temperature-- Respiratory Rate--Oxygen Saturation--Inhaled Oxygen Concentration--Kvuwgf990 kg (270 lb 15.1 oz)11/30/2018 7:44 AM NOWMrpkyf405.7 cm (5' 7.99 )11/30/2018 7:44 AM EDTBody Mass Index41.21011/30/2018 7:44 AM EDT Plan of Treatment Not on file Care Teams Team MemberRelationshipSpecialtyStart DateEnd Date Stefan Coto MD [address] [facility] [place] [address] PCP - General11/16/18
--- OUTSIDE RECORDS SUMMARY | 2025-08-13 13:41 | XMS_ITS | Clinical Summary ---
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 Social History Tobacco UseTypesPacks/DayYears UsedDateSmoking Tobacco: NeverSmokeless Tobacco: NeverAlcohol UseStandard Drinks/WeekCommentsNo0 (1 standard drink = 0.6 oz pure alcohol)Sex and Gender InformationValueDate RecordedSex Assigned at BirthNot on fileLegal KvoXlao25/24/2014 10:49 AM EDTGender IdentityNot on fileSexual OrientationNot on file Last Filed Vital Signs Vital SignReadingTime TakenCommentsBlood Nxwdcblc082/8406 3:49 PM EDT Romgv781502/27/2016 3:49 PM XFCCjjyianntdg77.9 ??C (98.4 ??F)02/06/2016 10:45 AM EDTRespiratory Ahoc437802/27/2016 3:49 PM EDTOxygen Saturation--Inhaled Oxygen Concentration--Uvhoft235.7 kg (264 lb)02/27/2016 3:49 PM JNVInktku172.7 cm (5' 7.99 )02/27/2016 3:49 PM EDTBody Mass Index40.1506 3:49 PM EDT Plan of Treatment Health MaintenanceDue DateLast DoneCommentsAnxiety Msjtdgkri12/24/2001Depression Oxbnozpit80/24/2001HIV Nxhwsuebr65/24/2001Hepatitis C Xcxzljgix43/24/2001 DTaP,Tdap,Td Vaccine (1 - Tdap)2002Hepatitis B Vaccine (1 of 3 - 19+ 3- dose series)2002HPV Vaccine (1 - 3-dose SCDM series)2010Lipid Eypqwablr08/24/2018Covid-19 Vaccine (1 - 2024- season)2025Influenza Vaccine (#1)2025 Care Teams Team MemberRelationshipSpecialtyStart DateEnd Date Stefan Coto (Historical) [address] [place] [address] PCP - Dsplnnp32/27/14
--- OUTSIDE RECORDS SUMMARY | 2025-08-13 13:41 | XMS_ITS | Clinical Summary ---
Author Organization [facility] Healthcare Address [address] [place] [address] Care Team Providers Care Metal Lather Name Role Phone Unavailable Primary Care Provider Unavailabl e Social History Tobacco UseTypesPacks/DayYears UsedDateSmoking Tobacco: Never AssessedSex and Gender InformationValueDate RecordedSex Assigned at BirthNot on fileLegal Sex Male12/02/2022 8:15 PM EDTGender IdentityNot on fileSexual OrientationNot on file Last Filed Vital Signs Vital SignReadingTime TakenCommentsBlood Hsynsnrg667/9908212/14/2018 12:00 PM EDT Pulse--Temperature--Respiratory Rate--Oxygen Saturation--Inhaled Oxygen Concentration--Qhfayf288 kg (265 lb)12/14/2018 12:00 PM GKYLjukqo869.7 cm (5' 8 )12/14/2018 12:00 PM EDTBody Mass Index40.29012/14/2018 12:00 PM EDT Plan of Treatment Not on file
--- OUTSIDE RECORDS SUMMARY | 2025-08-13 13:41 | XMS_ITS | Clinical Summary ---
Author Organization [employer] [facility] tem Address [id number] [address] [place] [address] Care Team Providers Care Head Paper Tester Name Role Phone Stefan Coto MD Primary [...] standard drink = 0.6 oz pure alcohol)rarelyChildcareAnswerDate UsjlzdzoYkwfmhwvjSziifxp87/12/2019Employment AnswerDate GlhdvaxjSefeihdhefUflcfaa77/12/2019Purpose - LifeAnswerDate Recorded Purpose and direction in ildoYunfajx86/11/2021ex and Gender InformationValue Date RecordedSex Assigned at BirthNot on fileLegal UqbLjyt2004/25/2015 11:33 AM EDTGender IdentityNot on fileSexual OrientationNot on file Last Filed Vital Signs Vital SignReadingTime TakenCommentsBlood Bhvebfhf641/9105 2:45 PM EDT Eigbo8634 1:55 PM TCQMpxjarxnfto83.8 ??C (96.4 ??F)02/02/2018 1:25 PM EDTRespiratory Cint828702/02/2018 1:55 PM EDTOxygen Ltibzlazvw24%02/02/2018 2:45 PM EDTInhaled Oxygen Concentration--Aijrix994.5 kg (281 lb)02/02/2018 9:22 AM PQJPvpnlo439.7 cm (5' 8 )02/02/2018 9:22 AM EDTBody Mass Index42.7302/02/2018 9:22 AM EDT Plan of Treatment Not on file Medical Devices ImplantedTypeAreaManufacturerDevice IdentifierShelf Expiration DateModel / Serial / LotPshlk 3.5mm Bio-Pushlock [id number] Ea Only For Billonly - Sna - [id number] Implanted:Qty: 1 on 02/02/[facility]: TzgplcjsVbonzky69/31/2019AR-1926B / NA / [id number] 3.5mm Bio-Pushlock [id number] Ea Only For Billonly - Andre-1926b - [id number] Implanted:Qty: 1 on 02/02/2018 by Bobby [facility]: NfyfzrwdRzomocz77/16/2019AR-1926B / AR-1926B / [id number]:3.5 x 19.1 mm suture anchor bio-pushlockSuture [place] Swivel - [id number] - [id number] Implanted:Qty: 1 on 02/02/2018 [facility] [id number] / [id number] / [id number] Insurance Care Teams Team MemberRelationshipSpecialtyStart DateEnd Stefan Coto MD [facility]01/10/18
--- NOTE | 2025-08-13 13:43 | XR_ITS ---
The [address] [address] Patient Name: MALA GIBSON MRN: [id number] date: 1985 Sex: M Assigned Patient Location: RAD Current Patient Location: [facility] Accession/Order Number: [id number] Exam Date: 08/13/2025 13:50 Report Date: 08/13/2025 16:39 At the request of: YOLANDA PULIDO MD Procedure: XR shoulder RT min 2V XR shoulder RT min 2V 08/13/2025 1:54 PM SIGNS AND SYMPTOMS: ^Internal Derangement Of Shoulder PROTOCOL: 3 views of the right shoulder COMPARISON: 06/25/2025 FINDINGS: There is cortical irregularity along the lateral aspect of the clavicle which may represent a remote posttraumatic injury. There is soft tissue anchoring in the humeral head with subcortical sclerosis along the greater tuberosity of the humeral head. This is suspicious for previous rotator cuff pathology. There is no acute displaced fracture. XR/XR shoulder RT min 2V IMPRESSION: Remote posttraumatic deformity of the lateral aspect of the right clavicle with post surgical changes suspicious for previous rotator cuff repair. No acute displaced fracture or dislocation. Impression dictated by: Adin Locke M.D. 08/13/2025 4:39 PM Dictation Location: [place] [address] Electronically authenticated by: [id number] Y Date: 08/13/2025 16:39
== END 2025-08-13 13:38 | disposition home or self-care (01) ==
LOC: RAD 13:38
PROVIDERS: PCP Family Medicine; Visit Provider Family Medicine
DX: M24.811 Other specific joint derangements of right shoulder, not elsewhere classified (principal); Z98.890 Other specified postprocedural states
CPT/HCPCS: 73030

== ENCOUNTER 2025-08-16 23:29 | Emergency (ER) | payer OTHER, SELFPAY ==
--- OUTSIDE RECORDS SUMMARY | 2025-08-13 08:00 | XMS_ITS ---
Author Organization [facility] [place] Address [address] [place] [address] Care Team Providers Care Traffic Signal Mechanic Name Role Phone Gerardo Coto Primary Care Provider [phone] Allergies No Known Allergies REASON FOR VISIT possible torn rotator cuff right shoulder, wants to discuss a few other things Medications Medication SIG (Take, Route, Frequency, Duration) Notes Start Date End Date Status Protonix 40 MG 1 tablet Orally Every Evening; Duration : 30 day(s) PRN 04/12/2023 ActiveBreztri Aerosphere 160/9/4.8 mcgas directed inhalation 2 puffs BID; Duration: 30 days5ActiveFerrous Sulfate 325 (65 Fe) MG1 tablet Orally twice a day; Duration: 30 days5ActiveDiclofenac Sodium 75 MG1 tablet as needed Orally Twice a day; Duration: 30 days5ActiveMounjaro 2.5 MG/0.5ML2.5 mg Subcutaneous weekly; Duration: 30 days5Active Social History Tobacco Use: Social History Observation Description Date Details (start date - stop date) Never Smoker NA - NA Tobacco Use/Smoking Question Answer Notes Patient is a nonsmoker AUDIT-C (Standard) Question Answer Notes Did you have a drink containing alcohol in the p ast year? No Tsecxa6LelzbwnzlttxpbKhgnetyr Problems Problem Type SNOMED Code ICD Code Onset Dates Problem Status W/U Status Risk Notes Problem Internal derangement of shoulder, right (M24.811)Activeconfirmed Vital Signs Weight 337.6 lbs 08/13/2025 Height 68 in 08/13/2025 Blood pressure systolic 134 mm Hg 11/24/20 25 Blood pressure diastolic 80 mm Hg 025 BMI 51.33 kg/m2 08/13/2025 Encounters Encounter Location Date Provider Diagnosis [facility] [address] [place] [address] 08/13/2025 Gerardo Coto Internal derangement of shoulder, right M24.811 ; KJ (obstructive sleep apnea) G47.33 and Dyspnea R06.00 Assessments Encounter Date Diagnosis (ICD Code) Assessment Notes Treatment Notes Treatment Clinical Notes Section Notes 08/13/2025 Internal derangement of shoulder , right (ICD-10 - M24.811) 08/13/2025OSA (obstructive sleep apnea) (ICD-10 - G47.33)needs added weight loss to improve sleep apnea - willing to try pinaqmgg22/24/2025Dyspnea (ICD-10 - R06.00)sampel of breztri Plan Of Treatment Medication Medication Name Sig Start Date Stop Date Notes Breztri Aerosphere 160/9/4.8 mcg as dire cted inhalation 2 puffs BID; Duration: 30 days 08/13/2025 Diclofenac Sodium 75 MG1 tablet as needed Orally Twice a day; Duration: 30 days 08/13/2025Mounjaro 2.5 MG/0.5ML2.5 mg Subcutaneous weekly; Duration: 30 days 08/13/2025Treatment Notes Assessment Notes KJ (obstructive sleep apnea) needs adde d weight loss to improve sleep apnea - willing to try mounjaro Dyspnea sampel of breztri Pending Test Test Name Order Date MRI SHOULDER RT WO CON 08/13/2025 XR SHOULDER RT 2V or > 08/13/2025 Progress Notes * Bobby GARCIADOB:1985 (40 yo M)Acc No.[id number]:08/13/2025 Progress Note Patient: Bobby HARPER :?Stefan Coto ([facility]), MDDOB:1985???Age: 40 Y???Sex:MaleDate:08/13/2025Phone:[phone]:[address], [id number] In:12:57 PM ESTCheck Out:01:28 PM EST Subjective: * Chief Complaints: * P ossible torn rotator cuff right shoulder, wants to discuss a few other things * HPI: ???General:? Was doing chain saw pull exercises about 6 weeks ago - progressively getting worse - Pain from should up into neckand down into Bicepa nd tricep progressivly worse in last 6 weeks Incertain position can feel like is gpoing to give out Not past the elbow ried Ice - heat - KT tapoing - NSAIDS _. * Active Problem List I51.7 Cardiomegaly Modified On:03/04/2023 Status:dgvoedvokH99.33OSA (obstructive sleep apnea) Modified On:11/24/2023 Status:jzwtnkpruW10.9IBS (irritable bowel syndrome) Modified On:04/12/2023 Status:drzrvpyoyM32.539Wrist pain, acute Modified On:04/12/2023 Status:yhrsiwqaqH66.2Paresthesia Modified On:03/12/2023 Status:jwowuavzeK63.3Neoplasm of uncertain behavior of appendix Modified On:03/12/2023 Status:yqovfbrniD17.03Carpal tunnel syndrome, bilateral upper limbs Modified On:04/30/2023 Status:yuhwavgrvW52.41Body mass index [BMI] 40.0-44.9, adult Modified On:05/14/2023 Status:nttcsoujxZ55.30Diverticulosis of large intestine without perforation or abscess without bleeding Modified On:06/22/2023 Status:stljpvqqgB65.00Well adult Modified On:03/21/2025 Status:qegcjawkjY61.811Internal derangement of shoulder, right Modified On:08/13/2025 Status:confirmed * Medical History: * Surgical History: E GD/Colonoscopy 12/07/2012icep Tenotomy Distal Splenrenal Shunt Placement * Hospitalization/Major Diagno stic Procedure: S ee above * Family History: F ather: 53 yrs, Lung cancer, diagnosed with Cancer. M other: , leukemia, diagnosed with Cancer. B jose c(s): alive. D aughter(s): alive. 1 brother(s) . 1 daughter(s) - healthy. . * Social History: ???Tobacco Use:?Tobacco Use/Smoking?Patient is a?nonsmoker ???Drug/Alcohol:?AUDIT-C (Standard)?Did you have a drink containing alcohol in the past year??No ?Points?0 ?Interpretation?Negative * Medications: T akingFerrous Sulfate 325 (65 Fe) MG Tablet 1 tablet Orally twice a day Protonix(Pantoprazole Sodium) 40 MG Tablet Delayed Release 1 tablet Orally Every Evening , Notes to Pharmacist: PRNMedication List reviewed and reconciled with the patientTaking Ferrous Sulfate 325 (65 Fe) MG Tablet 1 tablet Orally twice a day Taking Protonix(Pantoprazole Sodium) 40 MG Tablet Delayed Release 1 tablet Orally Every Evening , Notes to Pharmacist: PRNMedication List reviewed and reconciled with the patient * Allergies: N .K.D.A.no[Allergies Verified] Objective: * Vitals: W t:337.6lbs, Ht: 68 in, BP:134/80mm Hg, BMI:51.33Index, Ht-cm: 172.72 cm, Wt-k.13 kg. * Examination: ???Ortho Right Shoulder: ???R shoulder isht ant and sup tendenss - poor int roatiaon wthi +laxiety on superior proessure consitent with torn rotator cuff unalbe to elevate arm past 90 degrees. Assessment: * Assessment: 1.?Internal derangement of shoulder, right - M24.811 (Primary)???2.?KJ (ob structive sleep apnea) - G47.33???3.?Dyspnea - R06.00??? Plan: * Treatment: Start Diclofenac Sodium Tablet Delayed Release, 75 MG, 1 tablet as needed, Orally, Twice a day, 30 days, 60 Tablet, Refills 11.?Imaging: MRI SHOULDER RT WO CON ?Imaging: XR SHOULDER RT 2V or >2.?KJ (obstructive sleep apnea)? Start Mounjaro Solution Auto-injector, 2.5 MG/0.5ML, 2.5 mg, Subcutaneous, weekly, 30 days, 1, Refills 11.?? Notes: needs added weight loss to improve sleep apnea - willing to try mounjaro??3.?Dyspnea? Start Breztri Aerosphere aerosol, 160/9/4.8 mcg, as directed, inhalation, 2 puffs BID, 30 days, 28 inhalations.?? Notes: sampel of breztri?? * Procedure Codes: * Preventive Medicine: ??Screenings/Counseling:?BMI ACTION PLAN?Above Normal BMI Follow-up?Dietary management education, guidance, and counseling * * Sign off status: CompletedVisit Status:?CHK (Check Out) true * Provider: Gino Coto (TTC)MD Date: 10/13/2024 Generated for Printing/Faxing/eTransmitting on:?08/17/2025 12:02 AM EST History and Physical Notes * HPI (History of Present Illness) CategorySub-CategoryDetailNotesCategory NotesGeneral Was doing chain saw pull exercises about 6 weeks ago - progressively getting worse - Pain from should up into neckand down into Bicepa nd tricep progressivly worse in last 6 weeks Incertain position can feel like is gpoing to give out Not past the elbow ried Ice - heat - KT tapoing - NSAIDS _ Examination CategorySub-CategoryDetailNotesCategory NotesOrtho Right Shoulder R shoulder isht ant and sup tendenss - poor int roatiaon wthi +laxiety on superior proessure consitent with torn rotator cuff unalbe to elevate arm past 90 degrees
[2025-08-16 23:35] VITALS: BP 182/112; PULSE 58; TEMP 36.6; O2SAT 98; BMI 50.9
--- OUTSIDE RECORDS SUMMARY | 2025-08-17 00:02 | XMS_ITS | Clinical Summary ---
Author Organization [facility] Healthcare Address [address] [place] [address] Care Team Providers Care Railroad Police Name Role Phone Unavailable Primary Care Provider Unavailabl e Social History Tobacco UseTypesPacks/DayYears UsedDateSmoking Tobacco: Never AssessedSex and Gender InformationValueDate RecordedSex Assigned at BirthNot on fileLegal Sex Male12/02/2022 8:15 PM EDTGender IdentityNot on fileSexual OrientationNot on file Last Filed Vital Signs Vital SignReadingTime TakenCommentsBlood Vvnokgyx065/2475712/14/2018 12:00 PM EDT Pulse--Temperature--Respiratory Rate--Oxygen Saturation--Inhaled Oxygen Concentration--Zqbnne880 kg (265 lb)12/14/2018 12:00 PM RGGEnwkaz078.7 cm (5' 8 )12/14/2018 12:00 PM EDTBody Mass Index40.29012/14/2018 12:00 PM EDT Plan of Treatment Not on file
--- OUTSIDE RECORDS SUMMARY | 2025-08-17 00:02 | XMS_ITS | Clinical Summary ---
Author Organization [employer] [facility] tem Address [id number] [address] [place] [address] Care Team Providers Care Gasoline Pump Mechanic Name Role Phone Stefan Coto MD Primary [...] standard drink = 0.6 oz pure alcohol)rarelyChildcareAnswerDate YrsfcuekTjyehoignRtqaqvn75/12/2019Employment AnswerDate JoxeflfsWrghkmaaciKcfnajp90/12/2019Purpose - LifeAnswerDate Recorded Purpose and direction in fuevNhulssq35/11/2021ex and Gender InformationValue Date RecordedSex Assigned at BirthNot on fileLegal AukXaze6904/25/2015 11:33 AM EDTGender IdentityNot on fileSexual OrientationNot on file Last Filed Vital Signs Vital SignReadingTime TakenCommentsBlood Ahruwlyh174/9105 2:45 PM EDT Jlkub0789 1:55 PM PIKDrzzjebgwiv11.8 ??C (96.4 ??F)02/02/2018 1:25 PM EDTRespiratory Ycaj006002/02/2018 1:55 PM EDTOxygen Vrtpnetonk96%02/02/2018 2:45 PM EDTInhaled Oxygen Concentration--Bdrylu156.5 kg (281 lb)02/02/2018 9:22 AM XNCEhwtix014.7 cm (5' 8 )02/02/2018 9:22 AM EDTBody Mass Index42.7302/02/2018 9:22 AM EDT Plan of Treatment Not on file Medical Devices ImplantedTypeAreaManufacturerDevice IdentifierShelf Expiration DateModel / Serial / LotPshlk 3.5mm Bio-Pushlock [id number] Ea Only For Billonly - Sna - [id number] Implanted:Qty: 1 on 02/02/[facility]: VzytrvwpTzfbarx30/31/2019AR-1926B / NA / [id number] 3.5mm Bio-Pushlock [id number] Ea Only For Billonly - Andre-1926b - [id number] Implanted:Qty: 1 on 02/02/2018 by Bobby [facility]: DuqfyfiyVctkoxf74/16/2019AR-1926B / AR-1926B / [id number]:3.5 x 19.1 mm suture anchor bio-pushlockSuture [place] Swivel - [id number] - [id number] Implanted:Qty: 1 on 02/02/2018 [facility] [id number] / [id number] / [id number] Insurance Care Teams Team MemberRelationshipSpecialtyStart DateEnd Stefan Coto MD [facility]01/10/18
--- OUTSIDE RECORDS SUMMARY | 2025-08-17 00:03 | XMS_ITS | Patient Health Record ---
Author Organization [facility] in [place] Address [address] [place] [address] Care Team Providers Care Agriculture Extension Specialist Name Role Phone Gerardo Pulido Primary Care Provider [phone] Allergies No Known Allergies Results Component Value Reference Range Notes XR shoulder RT min 2V Reviewed date:08/13/2025 06:28:10 PM Interpretation: Performing Lab: Notes/Report: Source Facility: [place] [address] XRay Report Signed Patient: MALA GARCIA MR#: [id number] : 1985 Acct:[id number] Age/Sex: 40 / M ADM Date: 08/13/25 Loc: RAD Attending Dr: Yolanda Pulido M.D. Ordering Physician: Yolanda Pulido M.D. Date of Service: 08/13/25 Procedure(s): XR shoulder RT min 2V Accession Number(s): [id number] cc: Yolanda Pulido M.D. [place] [address] Patient Name: MALA GARCIA MRN: [id number] date: 1985 Sex: M Assigned Patient Location: RAD Current Patient Location: RAD Accession/Order Number: [id number] Exam Date: 08/13/2025 13:50 Report Date: 08/13/2025 16:39 At the request of: YOLANDA PULIDO MD Procedure: XR shoulder RT min 2V XR shoulder RT min 2V 08/13/2025 1:54 PM SIGNS AND SYMPTOMS: Internal Derangement Of Shoulder PROTOCOL: 3 views of the right shoulder COMPARISON: 06/25/2025 FINDINGS: There is cortical irregularity along the lateral aspect of the clavicle which may represent a remote posttraumatic injury. There is soft tissue anchoring in the humeral head with subcortical sclerosis along the greater tuberosity of the humeral head. This is suspicious for previous rotator cuff pathology. There is no acute displaced fracture. XR/XR shoulder RT min 2V IMPRESSION: Remote posttraumatic deformity of the lateral aspect of the right clavicle with post surgical changes suspicious for previous rotator cuff repair. No acute displaced fracture or dislocation. Impression dictated by: Adin Locke M.D. 08/13/2025 4:39 PM Dictation Location: [facility] Electronically authenticated by: [id number] Y Date: 08/13/2025 16:39 Dictated By: Adin Locke M.D. Signed By: 08/13/25 1642 DD/ 1639 TD/TT: Drawbench Operator Helper: HEMOGLOBIN Reviewed date:06/29/2025 11:50:51 AM Interpretation: Performing Lab: Notes/Report: [facility] , Hemoglobin 14.2 14.0-18.0 g/dL Performing Lab:see noteML - [facility] LBBLOOD GASES BTY Reviewed date:06/29/2025 11:50:51 AM Interpretation: Performing Lab: Notes/Report: [facility] ,pH ABG7.4087.350-7.450ABG RGI722.535.0-45.0 mmHgPO2 ABG79.380.0-100.0 mmHgHCO3 ABG24.922.0-26.0 mmol/LBase Excess ABG0.2-2.0-2.0 mmol/LOxygen Saturation ABG 96.8Allen TestPOSITIVEPOSITIVEO2 ModeROOM AIRPuncture SiteRRPerforming Lab:see noteML - [facility] LBCT chest high res Reviewed date:06/25/2025 12:45:27 PM Interpretation: Performing Lab: Notes/Report: Source Facility: [facility] [place] [address] [address] [address] Scan Report Signed Patient: MALA GARCIA MR#: [id number] : 1985 Acct:[id number] Age/Sex: 39 / M ADM Date: 06/25/25 Loc: CT Attending Dr: BlayneStaff Physician Roach Ordering Physician: Yann Delgado M.D. Date of Service: 06/25/25 Procedure(s): CT chest high res Accession Number(s): [id number] cc: Yolanda Pulido M.D. [place] [id number] Patient Name: MALA GARCIA MRN: [id number] date: 1985 Sex: M Assigned Patient Location: CT Current Patient Location: CT Accession/Order Number: [id number] Exam Date: 06/25/2025 09:45 Report Date: 06/25/2025 10:58 At the request of: NON-STAFF PHYSICIAN VILA Procedure: CT chest high res CT CHEST [...] Jr., D.O. 06/25/2025 10:58 AM Dictation Location: [facility] [employer] Electronically authenticated by: [id number] Y Date: 06/25/2025 10:58 Dictated By: Bin Ruvalcaba M.D. Signed By: 06/25/25 1101 DD/ 1058 TD/TT: Drawbench Operator Helper:SUSANNA echo doppler complete Reviewed date:04/29/2025 07:45:23 PM Interpretation: Performing Lab: Notes/Report: Source Facility: [place] [address] Cardiology Report Signed Patient: MALA GARCIA MR#: [id number] : 1985 Acct:[id number] Age/Sex: 39 / M ADM Date: 04/26/25 Loc: CARD Attending Dr: Yolanda Pulido M.D. Ordering Physician: Yolanda Pulido M.D. Date of Service: 04/26/25 Procedure(s): SUSANNA echo doppler complete Accession Number(s): [id number] cc: Yolanda Pulido M.D. Patient Name: MALA GARCIA MR#: [id number] : 1985 Exam Date: 04/26/2025 Ordering Doctor: DR YOLANDA PULIDO . ECHOCARDIOGRAM REPORT PROCEDURE: SUSANNA ECHO DOPPLER COMPLETE INDICATIONS: Dyspnea COMPARISON: None. [...] HARPER Signed By: 04/28/251958 DD/ 56 TD/TT: Drawbench Operator Helper:INSULIN Reviewed date:04/29/2025 07:45:23 PM Interpretation: Performing Lab: Notes/Report: [facility] ,Gklqmyx78.32.6-24.9 uIU/mL Process Stripper: Warner William PhD, Phone: [phone] [address] [place], [place] [id number] Performed at: - [facility] Felt Performing Lab:see noteLC - [facility] LBNM maggie perf SPECT rest str Reviewed date:04/17/2025 02:32:54 PM Interpretation: Performing Lab: Notes/Report: Source Facility: [place] [address] Nuclear Medicine Report Signed Patient: MALA GARCIA MR#: [id number] : 1985 Acct:[id number] Age/Sex: 39 / M ADM Date: 04/09/25 Loc: CARD Attending Dr: Yolanda Pulido M.D. Ordering Physician: Yolanda Pulido M.D. Date of Service: 04/09/25 Procedure(s): NM maggie perf SPECT rest str Accession Number(s): [id number] cc: Yolanda Pulido M.D. Patient Name: MALA GARCIA MR#: [id number] : 1985 Exam Date: 04/09/2025 Ordering Doctor: [...] Signed By: 04/17/25 0859 DD/ 0858 TD/TT: Drawbench Operator Helper:Troponin I High Sensitivity Reviewed date:04/29/2025 07:45:23 PM Interpretation: Performing Lab: Notes/Report: [facility] ,Troponin I High Sensitivity5.84.0-76.1 pg/mL UNIVERSAL DEFINITION OF MYOCARDIAL INFARCTION. THE UPPER CUT-OFF POINTS HAVE BEEN ESTABLISHED BASED ON THE FOURTH 99TH PERCENTILE = 76.2 PG/ML PERCENTILE OF cTnI DISTRIBUTION IN A REFERENCE POPULATION, NOTE: HIGH-SENSITIVITY TROPONIN ASSAY IS NOT INTENDED TO BE USED IN ISOLATION BUT SHOULD BE INTERPRETED IN CONJUNCTION WITH OTHER DIAGNOSTIC AND CLINICAL INFORMATION. REFERENCE LIMIT (URL) OF TROPONIN, DEFINED THE 99TH HAS BEEN CONFIRMED THE DECISION THRESHOLD FOR ID DIAGNOSIS. Performing Lab:see noteML - [facility] LBPROF 14(COMP METB) Reviewed date:04/29/2025 07:45:23 PM Interpretation: Performing Lab: Notes/Report: [facility] ,Kscvsz375064-597 mmol/LPotassium3.93.5-5.1 mmol/LYxzlolbj59361-534 mmol/LCarbon Chqnehu64.421.0-32.0 mmol/LAnion Gap12.6Ixhgrss5516-105 mg/dLBlood Urea Mtneffim63.07.0-18.0 mg/dLCreatinine0.950.70-1.30 mg/dLEstimated GFR ( Breann>60>=60 mL/min/1.73m 2Estimated GFR (Non- Christelle>60>=60 mL/min/1.73m 2BUN Creatinine Ratio16.7Ynegvoi3.48.5-10.1 mg/dLBilirubin Total0.80.2-1.0 mg/dL Aspartate Amino Cdwceufyyfr6522-29 U/LAlanine Zciznwtyzdrmasff8395-92 U/L Alkaline Twtnqvwdgvl0463-795 U/LTotal Protein7.96.4-8.2 g/dLAlbumin Level4.03.4- 5.0 g/dLGlobulin3.9Albumin Globulin Ratio1.0Performing Lab:see note - [facility] LBBNP Reviewed date:04/29/2025 07:45:23 PM Interpretation: Performing Lab: Notes/Report: [facility] ,NT Pro B Type Natriuretic Pept68.0<=450.0 pg/mLPerforming Lab:see note - [facility] LBTSH Reviewed date:04/29/2025 07:45:23 PM Interpretation: Performing Lab: Notes/Report: [facility] ,Thyroid Stimulating Hormone1.1910.358-3.740 uIU/mLPerforming Lab:see note - [facility] LBT4 Reviewed date:04/29/2025 07:45:23 PM Interpretation: Performing Lab: Notes/Report: [facility] ,T4 Thyroxine6.604.50-12.10 ug/dLPerforming Lab:see note - [facility] LBLIPID PROFILE Reviewed date:04/29/2025 07:45:23 PM Interpretation: Performing Lab: Notes/Report: [facility] ,Omdvpygcwmatm66<=150 mg/jYLjideiovojc942<=200 mg/dLHDL Pwwxkatryma4651-96 mg/dL <40 mg/dl - HIGH CARDIOVASCULAR RISK > or =60 mg/dl - LOW CARDIOVASCULAR RISK LDL Cholesterol Kidvnrodfj703.4 130-159 mg/dl BORDERLINE HIGH 160-189 mg/dl HIGH >190 mg/dl VERY HIGH 100-129 mg/dl NEAR OR ABOVE OPTIMAL <100 mg/dl OPTIMAL VLDL HASJSXSGZER12.6Chol HDL Ratio3.9 4.4 - 7.1 AVERAGE RISK 7.1 - 11.0 MODERATE RISK 3.3 - 4.4 LOW RISK >11.0 HIGH RISK Performing Lab:see noteML - [facility] LBFREE T3 Reviewed date:04/29/2025 07:45:23 PM Interpretation: Performing Lab: Notes/Report: [facility] ,Free T33.132.18-3.98 pg/mLPerforming Lab:see noteML - [facility] LB GLYCOHEMOGLOBIN A1C Reviewed date:04/29/2025 07:45:23 PM Interpretation: Performing Lab: Notes/Report: [facility] ,Glycohemoglobin A1C5.54.5-6.2 % > 7.0 ADA RECOMMENDED LIMIT 4.0 - 6.0 ADA THERAPEUTIC TARGET < 7.0 ACTION SUGGESTED Estimated Average Qlajsau664Zagqhqdxkk Lab:see noteML - [facility] LB CBC AUTO DIFF Reviewed date:04/29/2025 07:45:23 PM Interpretation: Performing Lab: Notes/Report: [facility] ,White Blood Count11.04.0-11.0 10 3/uLRed Blood Count4.514.70-6.10 10 6/uL Nafwfrcgrw23.414.0-18.0 g/mYVmccdxwhfx85.442.0-54.0 %Mean Corpuscular Yvsbat63.6 80.0-94.0 fLMean Corpuscular Eyerkuzasx80.725.9-34.0 pgMean Corpuscular HGB Conc 33.229.9-35.2 g/dLRed Cell Distribution Width13.211.0-15.0 %Platelet Eujlu568 150-450 10 3/uLMean Platelet Volume9.19.5-13.5 fLNeutrophils Percent Auto53.3 43.0-75.0 %Lymphocytes Percent Auto35.620.5-60.0 %Monocytes Percent Auto8.31.7- 12.0 %Eosinophils Percent Auto2.20.9-7.0 %Basophils Percent Auto0.40.2-2.0 % Immature Granulocytes Pct Auto0.20.0-0.5 %Neutrophils Absolute Auto5.91.4-6.5 10 3/uLLymphocytes Absolute Auto3.91.2-3.8 10 3/uLMonocytes Absolute Auto0.90.3- 0.8 10 3/uLEosinophils Absolute Auto0.20.0-0.7 10 3/uLBasophils Absolute Auto0.0 0.0-0.1 10 3/uLImmature Granulocytes Abs Auto0.020.00-0.03 10 3/uLPerforming Lab:see noteML - [facility] Reason For Referral No Information Medications Medication [...] 2.5 MG/0.5ML2.5 mg Subcutaneous weekly; Duration: 30 days5ActiveNabumetone 500 MG1 tablet Orally Twice a day; Duration: 30 day(s)5Active Cyclobenzaprine HCl 10 MG1 tablet Orally tid; Duration: 30 days5Active Social History Tobacco Use: [...] containing alcohol in the past year?Monthly (2 points)Qjqlqt0TpovsexuqclbreVgyldxriUXSBO-R (Standard) Question Answer Notes Did you have a drink containing alcohol in the p ast year? 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) ActiveconfirmedProblemCardiomegaly (0596616)Cardiomegaly (I51.7)Activeconfirmed ProblemDiverticular disease of colon (703246014)Diverticulosis of large intestine without perforation or abscess without bleeding (K57.30)Active confirmedProblemObstructive sleep apnea syndrome (78675803)KJ (obstructive sleep apnea) (G47.33)ActiveconfirmedProblemIrritable bowel syndrome (78370011) IBS (irritable bowel syndrome) (K58.9)ActiveconfirmedProblemWell adult (949581883)Well adult (Z00.00)ActiveconfirmedProblemParesthesia (55635555) Paresthesia (R20.2)ActiveconfirmedProblemInternal derangement of shoulder, right (M24.811)ActiveconfirmedProblemWrist pain (32119390)Wrist pain, acute (M25.539) ActiveconfirmedProblemCarpal tunnel syndrome (49164418)Carpal tunnel syndrome, bilateral upper limbs (G56.03)ActiveconfirmedProblemBody mass index 40+ - severely obese (440797971)Body mass index [BMI] 40.0-44.9, adult (Z68.41)Active confirmed Vital Signs Blood pressure diastolic 80 mm Hg 08/13/2025 Xmsofs29 in08/13/2025lood pressure pzdfwoyn712 mm Hg08/13/20259729Oubecj400.6 lbs 08/13/2025BMI51.33 kg/m208/13/2025 Procedures Procedure Date Ordered Date Performed Result Body Sit e CARDIO Stress Test - Cardiolite 03/21/2025 N/ACARDIO Trxdebkkjyikqt85/02/2025N/A Encounters Encounter Location Date Provider Diagnosis [facility] [address] [place] [address] 03/21/2025 Gerardo Hoy Dyspnea R06.00 and W ell adult Z00.00 [facility] [address] [place] [address] 08/13/2025 Gerardo Hoy Internal derangement of shoulder, right M24.811 ; KJ (obstructive sleep apnea) G47.33 and Dyspnea R06.00 [facility] [address] [place] [facility] [place] [address] 04/17/2025 Gerardo Chica [facility] [place] [facility] [place] [address] 04/29/2025[facility] [place] [facility] [place] [address]/02/2025[facility] [place] [facility] [place] [address]/[facility] [place] [facility] [place] [address]/ Gregaubrey Assessments Encounter Date Diagnosis (ICD Code) Assessment Notes Treatment Notes Treatment Clinical Notes Section Notes 03/21/2025 Dyspnea (ICD-10 - R06.00) 03/21/2025Well adult (ICD-10 - Z00.00)08/13/2025OSA (obstructive sleep apnea) (ICD-10 - G47.33)needs added weight loss to improve sleep apnea - willing to try /24/2025Internal derangement of shoulder, right (ICD-10 - M24.811) 08/13/2025Dyspnea (ICD-10 - R06.00)sampekarina Plan Of Treatment Pending Test Test Name Order Date CMP (COMPLETE METABOLIC PANEL) 3 HEMOGLOBIN A1C (GLYCO) 03/12/2023 HEMOGLOBIN A1C (GLYCO) 03/21/2025 INSULIN, TOTAL 03/12/2023 LIPID PANEL (CHOL/TRIG/HDL/LDL) 03/12/20 LIPID PANEL (CHOL/TRIG/HDL/LDL) 03/21/20 CBC WITH DIFF (EXP 07/2025) 03/12/2023 PSA, PROSTATE-SPECIFIC ANTIGEN 3 CT Abdomen and Pelvis w/contrast * 03/12 CARDIO Stress Test - Cardiolite 03/21/20 25 CARDIO Echocardiogram 03/21/2025 Insulin Level 03/21/2025 High Sensitivity Troponin 03/21/2025 BNP 03/21/2025 MRI SHOULDER RT WO CON 08/13/2025 XR SHOULDER RT 2V or > 08/13/2025 XR WRIST LT MIN 3 V 03/12/2023 XR WRIST RT MIN 3 V 03/12/2023 THYROID PANEL (T4/TSH/FREE T3) 3 THYROID PANEL (T4/TSH/FREE T3) 5 CMP (COMP MET JUAREZ) w/eGFR CKD-EPI 2024 CBC WITH DIFF 03/21/2025 Insurance Providers Payer Name Payer Address Payer Phone Subscriber Number Group Number Insured Name Patient Relationship to Insured Coverage Start Date Coverage End Date R [address] [address] [place] [phone] [id number] Mala Garcia Self - patient is the insured 3 Medical (General) History Medical History History ICD Code Shingles B02.9 KJ (obstructive sleep apnea) G47.33 Rotator Cuff Tear Adenocarcinoma AppendixIBS (irritable bowel syndrome)K58.9ZidxrdomxcapW06.7 WkhhxmvhueY51.3P2REnpjfcht of uncertain behavior of sgsvyiuhT05.3Surgical History Surgery Date(Month/Year) Bicep Tenotomy EGD/Mrtsjwcxhlc56/20/2013Distal Splenrenal Shunt PlacementHospitalization History Reason Date(Month/Year) See above
--- OUTSIDE RECORDS SUMMARY | 2025-08-17 00:03 | XMS_ITS | Clinical Summary ---
Author Organization [facility] Address [address] [place] [address] Phone Care Team Providers Care Recreation Center Director Name Role Phone Stefan Coto MD Primary Care Provider [phone] Social History Tobacco UseTypesPacks/DayYears UsedDateSmoking Tobacco: Never AssessedSex and Gender InformationValueDate RecordedSex Assigned at BirthNot on fileLegal Sex Male08/15/2022 10:26 AM ESTGender IdentityNot on fileSexual OrientationNot on file Last Filed Vital Signs Vital SignReadingTime TakenCommentsBlood Pressure--Pulse--Temperature-- Respiratory Rate--Oxygen Saturation--Inhaled Oxygen Concentration--Azlbmk623 kg (270 lb 15.1 oz)11/30/2018 7:44 AM KATRwzewa107.7 cm (5' 7.99 )11/30/2018 7:44 AM EDTBody Mass Index41.21011/30/2018 7:44 AM EDT Plan of Treatment Not on file Care Teams Team MemberRelationshipSpecialtyStart DateEnd Date Stefan Coto MD [address] [facility] [place] [address] PCP - General11/16/18
--- OUTSIDE RECORDS SUMMARY | 2025-08-17 00:03 | XMS_ITS | Clinical Summary ---
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 Social History Tobacco UseTypesPacks/DayYears UsedDateSmoking Tobacco: NeverSmokeless Tobacco: NeverAlcohol UseStandard Drinks/WeekCommentsNo0 (1 standard drink = 0.6 oz pure alcohol)Sex and Gender InformationValueDate RecordedSex Assigned at BirthNot on fileLegal SufSjqv09/24/2014 10:49 AM EDTGender IdentityNot on fileSexual OrientationNot on file Last Filed Vital Signs Vital SignReadingTime TakenCommentsBlood Yuldtqhv445/8406 3:49 PM EDT Xbmgg998902/27/2016 3:49 PM XNYJdepoucgfdz24.9 ??C (98.4 ??F)02/06/2016 10:45 AM EDTRespiratory Ngzv427802/27/2016 3:49 PM EDTOxygen Saturation--Inhaled Oxygen Concentration--Losibq373.7 kg (264 lb)02/27/2016 3:49 PM UEIIgfxqd800.7 cm (5' 7.99 )02/27/2016 3:49 PM EDTBody Mass Index40.1506 3:49 PM EDT Plan of Treatment Health MaintenanceDue DateLast DoneCommentsAnxiety Wvmfbzioz49/24/2001Depression Gwqetynsq32/24/2001HIV Tkrfdofpe52/24/2001Hepatitis C Ashsuwgar68/24/2001 DTaP,Tdap,Td Vaccine (1 - Tdap)2002Hepatitis B Vaccine (1 of 3 - 19+ 3- dose series)2002HPV Vaccine (1 - 3-dose SCDM series)2010Lipid Ihuhgicwi02/24/2018Covid-19 Vaccine (1 - 2024- season)2025Influenza Vaccine (#1)2025 Care Teams Team MemberRelationshipSpecialtyStart DateEnd Date Stefan Coto (Historical) [address] [place] [address] PCP - Dbupzvq62/27/14
[2025-08-17] MEDS: LIDOCAINE 5% PATCH 1 PATCH TOPICAL (00:17)
[2025-08-17] MEDS: HYDROCODONE/ACET 5-325 MG TABLET 2 TAB PO (00:17)
[2025-08-17 00:25] VITALS: BP 175/101; PULSE 56; O2SAT 97
--- NOTE | 2025-08-17 01:00 | ED.GENADUL1 ---
HPI HPI - General Adult General Chief complaint: Extremity Injury, Upper Stated complaint: RIGHT SHOULDER INJURED WORKING OUT A MONTH AGO Time Seen by Provider: 08/16/25 23:33 Source: patient Mode of arrival: walk-in Limitations: no limitations History of Present Illness HPI narrative: Patient is a 40-year-old male presenting to the emergency department for evaluation of right shoulder pain. Patient states he has had shoulder pain for the last month after injuring it doing yard work. He had an x-ray with his PCP 4 days ago which showed evidence of a rotator cuff tear. States has a history of a rotator cuff tear s/p repair, and this is similar and more severe than the first time. He denies any interval injuries since his x-ray 4 days ago. He states the pain is located in the right trapezius muscle and radiates into his right bicep/tricep. He denies any numbness/tingling/weakness in the extremity. He is otherwise asymptomatic fevers, chest pain, or shortness of breath. He has been using NSAIDs and Flexeril, however this only minimally helps his pain. He states he is currently in the process of getting preapproved for an MRI. Related Data Home Medications ?Medication ?Instructions ?Recorded ?Confirmed cyclobenzaprine 10 mg tablet 10 mg PO Q8H 08/16/25 08/16/25 ferrous sulfate 325 mg (65 mg 325 mg PO BID 08/16/25 08/16/25 iron) tablet nabumetone 500 mg tablet 500 mg PO BID 08/16/25 08/16/25 Previous Rx's ?Medication ?Instructions ?Recorded oxycodone-acetaminophen 5 mg-325 1 tab PO Q8H PRN pain 4 days #10 08/16/25 mg tablet tabs Allergies Allergy/AdvReac Type Severity Reaction Status Date / Time No Known Drug Allergies Allergy Verified 08/16/25 23:41 Opioid HPI Opioid Management Most Recent Opioid Data: Last Pain Scale 9 Today, 00:17 Last ED Pain Assessment 08/16/25, 23:45 Last MAR Pain Assessment Today, 00:17 Review of Systems ROS Status of ROS 10 or more systems reviewed and unremarkable except as noted in history and below PFSH PFSH Social History Little interest or pleasure in doing things: not at all Feeling down, depressed, or hopeless: not at all Exam Narrative Exam Narrative: CONSTITUTIONAL: Well-appearing, answering questions and following commands appropriately SKIN: Was warm and dry, no ecchymosis in the right upper extremity. EYES: Sclerae white. EARS, NOSE, THROAT: Moist oral mucosa. RESPIRATORY: Clear to auscultation bilaterally, no wheezes, crackles, or stridor, no use of accessory muscles CARDIOVASCULAR: Normal rate and regular rhythm. 2+ radial pulses. GASTROINTESTINAL: Abdomen is nondistended. MUSCULOSKELETAL: Tenderness to palpation throughout the right shoulder. Limited range of motion secondary to pain. NEUROLOGIC: Patient is awake and alert. Facies were symmetrical. Constitutional Vital Signs, click to edit/add: Last Vital Signs Temp 97.8 F 08/16/25 23:35 Pulse 56 L 08/17/25 00:25 Resp 20 08/17/25 00:25 BP 175/101 H 08/17/25 00:25 Pulse Ox 97 08/17/25 00:25 O2 Del Method Room Air 08/17/25 00:25 Course Vital Signs Vital signs: Vital Signs Temperature 97.8 F 08/16/25 23:35 Pulse Rate 58 L 08/16/25 23:35 Respiratory Rate 16 08/16/25 23:35 Blood Pressure 182/112 H 08/16/25 23:35 Pulse Oximetry 98 08/16/25 23:35 Oxygen Delivery Method Room Air 08/16/25 23:35 Temperature 97.8 F 08/16/25 23:35 Pulse Rate 56 L 08/17/25 00:25 Respiratory Rate 20 08/17/25 00:25 Blood Pressure 175/101 H 08/17/25 00:25 Pulse Oximetry 97 08/17/25 00:25 Oxygen Delivery Method Room Air 08/17/25 00:25 Medical Decision Making MDM Narrative Medical decision making narrative: Patient is a 40-year-old male presenting to the emergency department with a 1 month history of right shoulder pain after injuring it during yard work. On review of external documentation, he had an x-ray of the right shoulder with his PCP 4 days ago. X-rays demonstrated remote posttraumatic deformity at the lateral aspect of the right clavicle with postsurgical changes suspicious for previous rotator cuff repair. No acute displaced fracture or dislocation. I do believe the patient's presentation is secondary to rotator cuff tendinopathy, possible tear. He has had no interval injuries since his x-ray 4 days ago, I do not believe repeat imaging is indicated at this time. The patient has already trialed NSAIDs and Flexeril, therefore I do believe a short course of opiates is appropriate. He was given 10 mg of oral Ashford and a short prescription for Ashford 5 mg x 10 tablets until he can see his PCP on Wednesday. Return precautions were given including any new or concerning symptoms. Patient understands and agrees the plan. FINAL IMPRESSION: #Acute rotator cuff tendinopathy DISPOSITION: Discharged home CONDITION: Good Medical Records Medical records reviewed: Yes I reviewed the patient's medical records Discharge Plan Discharge Chief Complaint: Extremity Injury, Upper Clinical Impression: Rotator cuff arthropathy Patient Disposition: Home, Self-Care Time of Disposition Decision: 23:57 Condition: Good Mode of Transportation: Private Vehicle Prescriptions / Home Meds: New oxycodone-acetaminophen 5-325 mg tablet 1 tab PO Q8H PRN (Reason: pain) 4 Days Qty: 10 0RF No Action cyclobenzaprine 10 mg tablet 10 mg PO Q8H ferrous sulfate 325 mg (65 mg iron) tablet 325 mg PO BID nabumetone 500 mg tablet 500 mg PO BID Print Language: Divehi Instructions: Rotator Cuff Injury (ED) Referrals: Stefan Coto MD [Primary Care Provider, Family Practice] - 1 week Discharge Date/Time: 08/17/25 00:28
== END 2025-08-17 00:28 | disposition home or self-care (01) ==
PROVIDERS: Emergency Provider Student in an Organized Health Care Education/Training Program; PCP Family Medicine
DX: M12.811 Other specific arthropathies, not elsewhere classified, right shoulder (principal)
CPT/HCPCS: 99283

== ENCOUNTER 2025-08-22 09:19 | Outpatient (OUT) | payer OTHER, SELFPAY ==
--- OUTSIDE RECORDS SUMMARY | 2025-08-22 09:21 | XMS_ITS | Clinical Summary ---
Author Organization [facility] Healthcare Address [address] [place] [address] Care Team Providers Care Dewatering Filtering Supervisor Name Role Phone Unavailable Primary Care Provider Unavailabl e Social History Tobacco UseTypesPacks/DayYears UsedDateSmoking Tobacco: Never AssessedSex and Gender InformationValueDate RecordedSex Assigned at BirthNot on fileLegal Sex Male12/02/2022 8:15 PM EDTGender IdentityNot on fileSexual OrientationNot on file Last Filed Vital Signs Vital SignReadingTime TakenCommentsBlood Xaoezomx730/8319112/14/2018 12:00 PM EDT Pulse--Temperature--Respiratory Rate--Oxygen Saturation--Inhaled Oxygen Concentration--Blgkkk667 kg (265 lb)12/14/2018 12:00 PM SYUOgpxmw364.7 cm (5' 8 )12/14/2018 12:00 PM EDTBody Mass Index40.29012/14/2018 12:00 PM EDT Plan of Treatment Not on file
--- OUTSIDE RECORDS SUMMARY | 2025-08-22 09:21 | XMS_ITS | Clinical Summary ---
Author Organization [facility] Address [address] [place] [address] Phone Care Team Providers Care Grocery Store Clerk Name Role Phone Stefan Coto MD Primary Care Provider [phone] Social History Tobacco UseTypesPacks/DayYears UsedDateSmoking Tobacco: Never AssessedSex and Gender InformationValueDate RecordedSex Assigned at BirthNot on fileLegal Sex Male08/15/2022 10:26 AM ESTGender IdentityNot on fileSexual OrientationNot on file Last Filed Vital Signs Vital SignReadingTime TakenCommentsBlood Pressure--Pulse--Temperature-- Respiratory Rate--Oxygen Saturation--Inhaled Oxygen Concentration--Avgpyu156 kg (270 lb 15.1 oz)11/30/2018 7:44 AM QZWPkzuzc503.7 cm (5' 7.99 )11/30/2018 7:44 AM EDTBody Mass Index41.21011/30/2018 7:44 AM EDT Plan of Treatment Not on file Care Teams Team MemberRelationshipSpecialtyStart DateEnd Date Stefan Coto MD [address] [facility] [place] [address] PCP - General11/16/18
--- OUTSIDE RECORDS SUMMARY | 2025-08-22 09:21 | XMS_ITS | Clinical Summary ---
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 Social History Tobacco UseTypesPacks/DayYears UsedDateSmoking Tobacco: NeverSmokeless Tobacco: NeverAlcohol UseStandard Drinks/WeekCommentsNo0 (1 standard drink = 0.6 oz pure alcohol)Sex and Gender InformationValueDate RecordedSex Assigned at BirthNot on fileLegal FaoGrut32/24/2014 10:49 AM EDTGender IdentityNot on fileSexual OrientationNot on file Last Filed Vital Signs Vital SignReadingTime TakenCommentsBlood Mtuvtkyk382/8406 3:49 PM EDT Uemga579102/27/2016 3:49 PM ALCJnjqvmkftzy37.9 ??C (98.4 ??F)02/06/2016 10:45 AM EDTRespiratory Vgln833002/27/2016 3:49 PM EDTOxygen Saturation--Inhaled Oxygen Concentration--Jrojiz529.7 kg (264 lb)02/27/2016 3:49 PM ZVRTddrlj306.7 cm (5' 7.99 )02/27/2016 3:49 PM EDTBody Mass Index40.1506 3:49 PM EDT Plan of Treatment Health MaintenanceDue DateLast DoneCommentsAnxiety Rtcqqnsil21/24/2001Depression Poheezplg22/24/2001HIV Bihcykcnr23/24/2001Hepatitis C Ieayjbhrj97/24/2001 DTaP,Tdap,Td Vaccine (1 - Tdap)2002Hepatitis B Vaccine (1 of 3 - 19+ 3- dose series)2002HPV Vaccine (1 - 3-dose SCDM series)2010Lipid Jsdibxmek66/24/2018Covid-19 Vaccine (1 - 2024- season)2025Influenza Vaccine (#1)2025 Care Teams Team MemberRelationshipSpecialtyStart DateEnd Date Stefan Coto (Historical) [address] [place] [address] PCP - Vnhwqdf64/27/14
--- OUTSIDE RECORDS SUMMARY | 2025-08-22 09:21 | XMS_ITS | Clinical Summary ---
Author Organization [employer] [facility] tem Address [id number] [address] [place] [address] Care Team Providers Care Enterprise Services Manager Name Role Phone Stefan Coto MD Primary [...] standard drink = 0.6 oz pure alcohol)rarelyChildcareAnswerDate ZdhqzwexHybsijtwmQmwfeav16/12/2019Employment AnswerDate JsobxancCeevxhnntdXnyyevg91/12/2019Purpose - LifeAnswerDate Recorded Purpose and direction in fyucBotcrlg41/11/2021ex and Gender InformationValue Date RecordedSex Assigned at BirthNot on fileLegal OkkJtwf8804/25/2015 11:33 AM EDTGender IdentityNot on fileSexual OrientationNot on file Last Filed Vital Signs Vital SignReadingTime TakenCommentsBlood Tmagaqxb656/9105 2:45 PM EDT Csrop4665 1:55 PM VRITzuyfjtpexj03.8 ??C (96.4 ??F)02/02/2018 1:25 PM EDTRespiratory Ztsn716102/02/2018 1:55 PM EDTOxygen Dmhfoyabfe95%02/02/2018 2:45 PM EDTInhaled Oxygen Concentration--Qwyrpu480.5 kg (281 lb)02/02/2018 9:22 AM MGDAghblu254.7 cm (5' 8 )02/02/2018 9:22 AM EDTBody Mass Index42.7302/02/2018 9:22 AM EDT Plan of Treatment Not on file Medical Devices ImplantedTypeAreaManufacturerDevice IdentifierShelf Expiration DateModel / Serial / LotPshlk 3.5mm Bio-Pushlock [id number] Ea Only For Billonly - Sna - [id number] Implanted:Qty: 1 on 02/02/2018 [facility]: EnofcwjzLkypgjm90/31/2019AR-1926B / NA / [id number] 3.5mm Bio-Pushlock [id number] Ea Only For Billonly - Andre-1926b - [id number] Implanted:Qty: 1 on 02/02/2018 by [facility]: HocybszsYgbxoih90/16/2019AR-1926B / AR-1926B / [id number]:3.5 x 19.1 mm suture anchor bio-pushlockSuture Oxford Swivel - [id number] - [id number] Implanted:Qty: 1 on 02/02/2018 [facility] [id number] / [id number] / [id number] [place] [address] Care Teams Team MemberRelationshipSpecialtyStart DateEnd Stefan Coto MD [facility]01/10/18
--- NOTE | 2025-08-22 09:24 | MR_ITS ---
The [address] [address] Patient Name: MALA GIBSON MRN: [id number] date: 1985 Sex: M Assigned Patient Location: MRI Current Patient Location: MRI Accession/Order Number: [id number] Exam Date: 08/22/2025 09:50 Report Date: 08/22/2025 14:34 At the request of: YOLANDA PULIDO MD Procedure: MR shoulder RT wo con MR RIGHT SHOULDER CLINICAL INFORMATION: Shoulder pain. S/P right rotator cuff repair. COMPARISON: 08/13/2025. PROCEDURE: Axial, oblique coronal, and oblique sagittal long TR images of the shoulder were obtained. FINDINGS: ROTATOR CUFF AND ASSOCIATED STRUCTURES Biceps Tendon: The biceps tendon is normally situated within the bicipital groove. No complete or partial biceps tendon tear is present. Rotator cuff: There is a partial thickness intrasubstance tear of the supraspinatous tendon with soft tissue anchoring in the humeral head suggesting previous repair. There is a partial thickness articular surface tear of the infraspinatus tendon. Musculature: There is no muscular tear, contusion, or atrophy. Bursa: No bursal effusion or thickening is seen. OSSEOUS STRUCTURES Acromioclavicular joint: Hypertrophic and presumably post-traumatic changes are noted in the lateral aspect of the right clavicle. A type 3 acromion configuration is noted. There is mild lateral acromial downsloping. Bones: No Hill-Sachs, reverse Hill-Sachs, or bony Bankart lesions are seen. There are no fractures or regions of abnormal bone marrow signal intensity. GLENOHUMERAL JOINT Joint: There is no glenohumeral joint effusion. Cartilage: No focal hyaline cartilage defects are noted. Labrum: The labrum is not optimally evaluated. Other support structures: No capsular or ligamentous abnormality is seen. MR/MR shoulder RT wo con IMPRESSION: 1. Hypertrophic and presumably post-traumatic changes are noted in the lateral aspect of the right clavicle. A type 3 acromion configuration is noted. There is mild lateral acromial downsloping. 2. There is a partial thickness intrasubstance tear of the supraspinatous tendon with soft tissue anchoring in the humeral head suggesting previous repair. 3. There is a partial thickness articular surface tear of the infraspinatus tendon. Impression dictated by: Adin Locke M.D. 08/22/2025 2:34 PM Dictation Location: [place] [address] Electronically authenticated by: [id number] Y Date: 08/22/2025 14:34
== END 2025-08-22 09:20 | disposition home or self-care (01) ==
LOC: MRI 09:19
PROVIDERS: PCP Family Medicine; Visit Provider Family Medicine
DX: M24.811 Other specific joint derangements of right shoulder, not elsewhere classified (principal); S46.011A Strain of muscle(s) and tendon(s) of the rotator cuff of right shoulder, initial encounter
CPT/HCPCS: 73221

== ENCOUNTER 2025-09-04 14:41 | Outpatient (OUT) | payer OTHER, SELFPAY ==
--- OUTSIDE RECORDS SUMMARY | 2025-08-22 13:03 | XMS_ITS ---
Author Organization [facility] [place] Address [address] [place] [address] Care Team Providers Care Care Asst Name Role Phone Gerardo Coto Primary Care Provider [phone] Reason For Referral Diagnosis 1 Supraspinatus tendon tear (S46.819A) Referral Organization [facility] Referring Provider First Name Gerardo Referring Provider Last Name Chica Referring Provider [facility] icine Referred Provider Steven Moore Referred Provider Specialty Orthopedic S urgery Referral Priority Routine REASON FOR VISIT mri results Encounters Encounter Location Date Provider Diagnosis [facility] [address] [place] [address] 08/22/2025 Gerardo Coto Supraspinatus tendon tear S46.819A and Paresthesia of arm R20.2 Assessments Encounter Date Diagnosis (ICD Code) Assessment Notes Treatment Notes Treatment Clinical Notes Section Notes 08/22/2025 Supraspinatus tendon tear (ICD-1 0 - S46.819A) 08/22/2025Paresthesia of arm (ICD-10 - R20.2) Plan Of Treatment Pending Test Test Name Order Date MRI CSPINE WO CON 08/22/2025 Referrals Referral Date Details 08/23/2025 08/23/2025, Steven flanagan Progress Notes * Bobby GARCIADOB:1985 (40 yo M)Acc No.[id number]:08/22/2025 Patient:?Bobby GARCIA :1985???Age:40 Y???Sex:MalePhone:[phone] Address:[address], [place], [address] Subjective: * Chief Complaints: * M ri results * Medical History: * Surgical History: * Hospitalization/Major Diagno stic Procedure: * Medications: Objective: * Vitals: * Physical Examination: ??? Assessment: * Assessment: 1.?Supraspinatus tendon tear - S46.819A (Primary)???2.?Paresthesia of arm - R20.2??? Plan: * Treatment: ? Referral To:Steven Moore??Orthopedic Surgery ?Reason: 2.?Paresthesia of arm?Imaging: MRI CSPINE WO CON * Procedure Codes: * true * Date:?Generated for Printing/Faxing/eTransmitting on:?09/04/2025 02:45 PM EST Consultation Request Notes Referral Date Referring Provider Referred Provider Not es 08/23/2025 Gerardo Coto Anil
--- OUTSIDE RECORDS SUMMARY | 2025-09-04 14:45 | XMS_ITS | Clinical Summary ---
Author Organization [facility] [facility] Address [id number] [address] [place] [address] Care Team Providers Care Collect On Delivery Clerk Name Role Phone Stefan Coto MD Primary Care Provider [phone] Allergies No known active allergies Medications MedicationSigDispense [...] standard drink = 0.6 oz pure alcohol)rarelyChildcareAnswerDate ZbopsjncLcudjfclxGrkzukq51/12/2019Employment AnswerDate AlpvtimbRqjbtnnwlmEwfwgje02/12/2019Purpose - LifeAnswerDate Recorded Purpose and direction in ooarJhoiapa56/11/2021ex and Gender InformationValue Date RecordedSex Assigned at BirthNot on fileLegal MvtEdol5804/25/2015 11:33 AM EDTGender IdentityNot on fileSexual OrientationNot on file Last Filed Vital Signs Vital SignReadingTime TakenCommentsBlood Rpezugfy244/9105 2:45 PM EDT Hrqpe5501/ 1:55 PM WCJPojssjipimn90.8 ??C (96.4 ??F)02/02/2018 1:25 PM EDTRespiratory Vkws241602/02/2018 1:55 PM EDTOxygen Nttltrpywr39%02/02/2018 2:45 PM EDTInhaled Oxygen Concentration--Easkro878.5 kg (281 lb)02/02/2018 9:22 AM GWYYxcleo291.7 cm (5' 8 )02/02/2018 9:22 AM EDTBody Mass Index42.7302/02/2018 9:22 AM EDT Plan of Treatment DateTypeDepartmentCare Team (Latest Contact Info)Pbeswyivbvy94/15/2026 8:40 AM ESTOffice Visit [facility] [address] [place] [address] [address] [place] [address] Adrian Navarrete MD [address] [place] [address], [address] [address] Health MaintenanceDue DateLast DoneCommentsDepression Ckuojihxd29/24/1995Tobacco Xpbimxmtp35/24/1995Adult BMI Xdrqjflbn09/24/2001DTaP,Tdap and Td Vaccines (1 - Tdap)2002Influenza Gtdubmo3105/21/2025 Medical Devices ImplantedTypeAreaManufacturerDevice IdentifierShelf Expiration DateModel / Serial / LotPshlk 3.5mm Bio-Pushlock [id number] Ea Only For Billonly - Sna - [id number] Implanted:Qty: 1 on 02/02/2018 [facility]: DmlqtffzLfnrqih53/31/2019AR-1926B / NA / [id number] 3.5mm Bio-Pushlock [id number] Ea Only For Billonly - Andre-1926b - [id number] Implanted:Qty: 1 on 02/02/2018 by Bobby [facility]: UepzhavbZajbrps69/16/2019AR-1926B / AR-1926B / [id number]:3.5 x 19.1 mm suture anchor bio-pushlockSuture [place] Swivel - [id number] - [id number] Implanted:Qty: 1 on 02/02/2018 by [facility]: [id number] / [id number] / [id number] [place] [address] Care Teams Team MemberRelationshipSpecialtyStart DateEnd Stefan Coto MD [facility]01/10/18
--- OUTSIDE RECORDS SUMMARY | 2025-09-04 14:46 | XMS_ITS | Patient Health Record ---
Author Organization [facility] in [place] Address [address] [place] [address] Care Team Providers Care Adjunct Trainer Name Role Phone Gerardo Pulido Primary Care Provider Allergies No Known Allergies Results Component Value Reference Range Notes NM maggie perf SPECT rest str Reviewed date:04/17/2025 02:32:54 PM Interpretation: Performing Lab: Notes/Report: Source Facility: [place] [address] Nuclear Medicine Report Signed Patient: MALA GARCIA MR#: [id number] : 1985 Acct:[id number] Age/Sex: 39 / M ADM Date: 04/09/25 Loc: CARD Attending Dr: Yolanda Pulido M.D. Ordering Physician: Yolanda Pulido M.D. Date of Service: 04/09/25 Procedure(s): NM maggie perf SPECT rest str Accession Number(s): [id number] cc: Yolanda Pulido M.D. Patient Name: MALA GARCIA MR#: [id number] : 1985 Exam Date: 04/09/2025 Ordering Doctor: [...] the study was pending per attending physician [facility]. For more details, please see separate cardiac [...] Signed By: 04/17/25 0859 DD/ 0858 TD/TT: Smoke Jumper: BNP Reviewed date:04/29/2025 07:45:23 PM Interpretation: Performing Lab: Notes/Report: [facility] , NT Pro B Type Natriuretic Pept 68.0 <=450.0 pg /mL Performing Lab:see noteML - [facility] LBCBC AUTO DIFF Reviewed date:04/29/2025 07:45:23 PM Interpretation: Performing Lab: Notes/Report: [facility] ,White Blood Count11.04.0-11.0 10 3/uLRed Blood Count4.514.70-6.10 10 6/uL Evdgwquhvp37.414.0-18.0 g/fITtopnbiqtd51.442.0-54.0 %Mean Corpuscular Kycvta58.6 80.0-94.0 fLMean Corpuscular Ywdtyghnfs05.725.9-34.0 pgMean Corpuscular HGB Conc 33.229.9-35.2 g/dLRed Cell Distribution Width13.211.0-15.0 %Platelet Hzwwo826 150-450 10 3/uLMean Platelet Volume9.19.5-13.5 fLNeutrophils Percent Auto53.3 43.0-75.0 %Lymphocytes Percent Auto35.620.5-60.0 %Monocytes Percent Auto8.31.7- 12.0 %Eosinophils Percent Auto2.20.9-7.0 %Basophils Percent Auto0.40.2-2.0 % Immature Granulocytes Pct Auto0.20.0-0.5 %Neutrophils Absolute Auto5.91.4-6.5 10 3/uLLymphocytes Absolute Auto3.91.2-3.8 10 3/uLMonocytes Absolute Auto0.90.3-0.8 10 3/uLEosinophils Absolute Auto0.20.0-0.7 10 3/uLBasophils Absolute Auto0.00.0- 0.1 10 3/uLImmature Granulocytes Abs Auto0.020.00-0.03 10 3/uLPerforming Lab:see noteML - [facility] LBFREE T3 Reviewed date:04/29/2025 07:45:23 PM Interpretation: Performing Lab: Notes/Report: [facility] ,Free T33.132.18-3.98 pg/mLPerforming Lab:see note - [facility] LB GLYCOHEMOGLOBIN A1C Reviewed date:04/29/2025 07:45:23 PM Interpretation: Performing Lab: Notes/Report: [facility] ,Glycohemoglobin A1C5.54.5-6.2 % > 7.0 ADA RECOMMENDED LIMIT 4.0 - 6.0 ADA THERAPEUTIC TARGET < 7.0 ACTION SUGGESTED Estimated Average Omkpunc084Cmxfzzpnco Lab:see noteML - [facility] LB INSULIN Reviewed date:04/29/2025 07:45:23 PM Interpretation: Performing Lab: Notes/Report: [facility] ,Uijktju96.32.6-24.9 uIU/mL Hasher Operator: Warner William PhD, Phone: [phone] [address] [place], [place] [phone] Performed at: [facility] Performing Lab:see note - [facility] LBLIPID PROFILE Reviewed date:04/29/2025 07:45:23 PM Interpretation: Performing Lab: Notes/Report: [facility] ,Jlgdcpltqrwej04<=150 mg/sRYaogoiuzpzc505<=200 mg/dLHDL Bqnabhkyeml5240-90 mg/dL <40 mg/dl - HIGH CARDIOVASCULAR RISK > or =60 mg/dl - LOW CARDIOVASCULAR RISK LDL Cholesterol Khsotrbgno972.4 130-159 mg/dl BORDERLINE HIGH 160-189 mg/dl HIGH >190 mg/dl VERY HIGH 100-129 mg/dl NEAR OR ABOVE OPTIMAL <100 mg/dl OPTIMAL VLDL RYHHDOGNHKF59.6Chol HDL Ratio3.9 4.4 - 7.1 AVERAGE RISK 7.1 - 11.0 MODERATE RISK 3.3 - 4.4 LOW RISK >11.0 HIGH RISK Performing Lab:see noteML - [facility] LBPROF 14(COMP METB) Reviewed date:04/29/2025 07:45:23 PM Interpretation: Performing Lab: Notes/Report: [facility] ,Zupisv677905-751 mmol/LPotassium3.93.5-5.1 mmol/GLklhakji39314-881 mmol/LCarbon Evriorj74.421.0-32.0 mmol/LAnion Gap12.9Saaouor9994-304 mg/dLBlood Urea Nitrogen 16.07.0-18.0 mg/dLCreatinine0.950.70-1.30 mg/dLEstimated GFR ( Breann>60 >=60 mL/min/1.73m 2Estimated GFR (Non- Christelle>60>=60 mL/min/1.73m 2BUN Creatinine Ratio16.5Zqoqnty3.48.5-10.1 mg/dLBilirubin Total0.80.2-1.0 mg/dL Aspartate Amino Qhhjqzevcod6682-03 U/LAlanine Bccsnrdpxmlpwtxv8604-45 U/L Alkaline Lbjlutulswr3016-222 U/LTotal Protein7.96.4-8.2 g/dLAlbumin Level4.03.4- 5.0 g/dLGlobulin3.9Albumin Globulin Ratio1.0Performing Lab:see noteML - [facility] LBT4 Reviewed date:04/29/2025 07:45:23 PM Interpretation: Performing Lab: Notes/Report: [facility] ,T4 Thyroxine6.604.50-12.10 ug/dLPerforming Lab:see noteML - [facility] LBTSH Reviewed date:04/29/2025 07:45:23 PM Interpretation: Performing Lab: Notes/Report: [facility] ,Thyroid Stimulating Hormone1.1910.358-3.740 uIU/mLPerforming Lab:see note - [facility] LBTroponin I High Sensitivity Reviewed date:04/29/2025 07:45:23 PM Interpretation: Performing Lab: Notes/Report: [facility] ,Troponin I High Sensitivity5.84.0-76.1 pg/mL UNIVERSAL DEFINITION [...] HAS BEEN CONFIRMED THE DECISION THRESHOLD FOR [place] DIAGNOSIS. Performing Lab:see note - [facility] LBCA echo doppler complete Reviewed date:04/29/2025 07:45:23 PM Interpretation: Performing Lab: Notes/Report: Source Facility: [place] [address] Cardiology Report Signed Patient: MALA GARCIA MR#: [id number] : 1985 Acct:[id number] Age/Sex: 39 / M ADM Date: 04/26/25 Loc: CARD Attending Dr: Yolanda Pulido M.D. Ordering Physician: Yolanda Pulido M.D. Date of Service: 04/26/25 Procedure(s): CA echo doppler complete Accession Number(s): [id number] cc: Yolanda Pulido M.D. Patient Name: MALA GARCIA MR#: [id number] : 1985 Exam Date: 04/26/2025 Ordering Doctor: [...] HARPER Signed By: 04/28/251958 DD/ 56 TD/TT: Smoke Jumper:CT chest high res Reviewed date:06/25/2025 12:45:27 PM Interpretation: Performing Lab: Notes/Report: Source Facility: [place] [address] CT Scan Report Signed Patient: MALA GARCIA MR#: [id number] : 1985 Acct:[id number] Age/Sex: 39 / M ADM Date: 06/25/25 Loc: CT Attending Dr: BlayneStaff Physician Roach Ordering Physician: Yann Delgado M.D. Date of Service: 06/25/25 Procedure(s): CT chest high res Accession Number(s): [id number] cc: Yolanda Pulido M.D. [place] [address] Patient Name: MALA GARCIA MRN: [id number] date: 1985 Sex: M Assigned Patient Location: CT Current Patient Location: CT Accession/Order Number: [id number] Exam Date: 06/25/2025 09:45 Report Date: 06/25/2025 [...] Jr., D.O. 06/25/2025 10:58 AM Dictation Location: [place] [address] Electronically authenticated by: [id number] Y Date: 06/25/2025 10:58 Dictated By: Bin Ruvalcaba M.D. Signed By: 06/25/25 1101 DD/ 1058 TD/TT: Smoke Jumper:BLOOD GASES BTY Reviewed date:06/29/2025 11:50:51 AM Interpretation: Performing Lab: Notes/Report: [facility] ,pH ABG7.4087.350-7.450ABG MPC342.535.0-45.0 mmHgPO2 ABG79.380.0-100.0 mmHgHCO3 ABG24.922.0-26.0 mmol/LBase Excess ABG0.2-2.0-2.0 mmol/LOxygen Saturation ABG 96.8Allen TestPOSITIVEPOSITIVEO2 ModeROOM AIRPuncture SiteRRPerforming Lab:see noteML - [facility] LBHEMOGLOBIN Reviewed date:06/29/2025 11:50:51 AM Interpretation: Performing Lab: Notes/Report: [facility] ,Jnbcspggjh95.214.0-18.0 g/dLPerforming Lab:see noteML - [facility] LBMR shoulder RT wo con Reviewed date:08/22/2025 06:04:01 PM Interpretation: Performing Lab: Notes/Report: Source Facility: [facility]-[address] [place] [address] [place] [address] Magnetic Resonance Report Signed Patient: MALA GARCIA MR#: [id number] : 1985 Acct:[id number] Age/Sex: 40 / M ADM Date: 08/22/25 Loc: MRI Attending Dr: Yolanda Pulido M.D. Ordering Physician: Yolanda Pulido M.D. Date of Service: 08/22/25 Procedure(s): MR shoulder RT wo con Accession Number(s): [id number] cc: Yolanda Pulido M.D. The [place] [address] Patient Name: MALA GARCIA MRN: [id number] date: 1985 Sex: M Assigned Patient Location: MRI Current Patient Location: MRI Accession/Order Number: [id number] Exam Date: 08/22/2025 09:50 Report Date: 08/22/2025 14:34 At the request of: YOLANDA PULIDO MD Procedure: MR shoulder RT wo con MR RIGHT SHOULDER CLINICAL INFORMATION: Shoulder pain. S/P right rotator cuff repair. COMPARISON: 08/13/2025. PROCEDURE: Axial, oblique coronal, and oblique sagittal long TR images of the shoulder were obtained. FINDINGS: ROTATOR CUFF AND ASSOCIATED STRUCTURES Biceps Tendon: The biceps tendon is normally situated within the bicipital groove. No complete or partial biceps tendon tear is present. Rotator cuff: There is a partial thickness intrasubstance tear of the supraspinatous tendon with soft tissue anchoring in the humeral head suggesting previous repair. There is a partial thickness articular surface tear of the infraspinatus tendon. Musculature: There is no muscular tear, contusion, or atrophy. Bursa: No bursal effusion or thickening is seen. OSSEOUS STRUCTURES Acromioclavicular joint: Hypertrophic and presumably post-traumatic changes are noted in the lateral aspect of the right clavicle. A type 3 acromion configuration is noted. There is mild lateral acromial downsloping. Bones: No Hill-Sachs, reverse Hill-Sachs, or bony Bankart lesions are seen. There are no fractures or regions of abnormal bone marrow signal intensity. GLENOHUMERAL JOINT Joint: There is no glenohumeral joint effusion. Cartilage: No focal hyaline cartilage defects are noted. Labrum: The labrum is not optimally evaluated. Other support structures: No capsular or ligamentous abnormality is seen. MR/MR shoulder RT wo con IMPRESSION: 1. Hypertrophic and presumably post-traumatic changes are noted in the lateral aspect of the right clavicle. A type 3 acromion configuration is noted. There is mild lateral acromial downsloping. 2. There is a partial thickness intrasubstance tear of the supraspinatous tendon with soft tissue anchoring in the humeral head suggesting previous repair. 3. There is a partial thickness articular surface tear of the infraspinatus tendon. Impression dictated by: Adin Locke M.D. 08/22/2025 2:34 PM Dictation Location: [place] [address] Electronically authenticated by: [id number] Y Date: 08/22/2025 14:34 Dictated By: Adin Locke M.D. Signed By: 08/22/25 1437 DD/ 1434 TD/TT: Smoke Jumper:XR shoulder RT min 2V Reviewed date:08/13/2025 06:28:10 PM Interpretation: Performing Lab: Notes/Report: Source Facility: [place] [address] [place] [address] XRay Report Signed Patient: MALA GARCIA MR#: [id number] : 1985 Acct:[id number] Age/Sex: 40 / M ADM Date: 08/13/25 Loc: RAD Attending Dr: Yolanda Pulido M.D. Ordering Physician: Yolanda Pulido M.D. Date of Service: 08/13/25 Procedure(s): XR shoulder RT min 2V Accession Number(s): [id number] cc: Yolanda Pulido M.D. The [place] [id number] Patient Name: MALA GARCIA MRN: [id number] date: 1985 Sex: M Assigned Patient Location: [facility] Current Patient Location: [facility] Accession/Order Number: [id number] Exam Date: 08/13/2025 13:50 Report Date: 08/13/2025 [...] Locke M.D. 08/13/2025 4:39 PM Dictation Location: [place] [address] Electronically authenticated by: [id number] Y Date: 08/13/2025 16:39 Dictated By: Adin Locke M.D. Signed By: 08/13/25 1642 DD/ 1639 TD/TT: Smoke Jumper: Reason For Referral Diagnosis 1 Supraspinatus tendon tear (S46.819A) Referral Organization [facility] Referring Provider First Name Gerardo Referring Provider Last Name [place] Referring Provider Speciality Family Med icine Referred Provider Steven Moore Referred Provider Specialty Orthopedic S urgery Referral Priority Routine Medications Medication SIG (Take, Route, Frequency, Duration) [...] tablet Orally Twice a day; Duration: 30 day(s)5ActiveoxyCODONE- Acetaminophen 10-325 MG 1 tablet as needed Orally every 6 hrs; Duration: 7 days M24.811 5ActiveCyclobenzaprine HCl 10 MG1 tablet Orally tid; Duration: 30 days 5Active Social History Tobacco Use: Social History Observation [...] containing alcohol in the past year?Monthly (2 points)Pvpnbu2YtjinggcoprvnuZotfxotwEQLPS-Y (Standard) Question Answer Notes Did you have a drink containing alcohol in the p ast year? 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) ActiveconfirmedProblemCardiomegaly (6993863)Cardiomegaly (I51.7)Activeconfirmed ProblemDiverticular disease of colon (382335077)Diverticulosis of large intestine without perforation or abscess without bleeding (K57.30)Active confirmedProblemObstructive sleep apnea syndrome (99009572)KJ (obstructive sleep apnea) (G47.33)ActiveconfirmedProblemIrritable bowel syndrome (47942951) IBS (irritable bowel syndrome) (K58.9)ActiveconfirmedProblemWell adult (831891893)Well adult (Z00.00)ActiveconfirmedProblemParesthesia (43252857) Paresthesia (R20.2)ActiveconfirmedProblemInternal derangement of shoulder, right (M24.811)ActiveconfirmedProblemWrist pain (18495503)Wrist pain, acute (M25.539) ActiveconfirmedProblemCarpal tunnel syndrome (25466203)Carpal tunnel syndrome, bilateral upper limbs (G56.03)ActiveconfirmedProblemBody mass index 40+ - severely obese (958827890)Body mass index [BMI] 40.0-44.9, adult (Z68.41)Active confirmed Vital Signs Blood pressure diastolic 80 mm Hg 08/13/2025 Vubguv61 in08/13/2025lood pressure mm Hg08/13/20259776Qjfudh302.6 lbs 08/13/2025BMI51.33 kg/m208/13/2025 Procedures Procedure Date Ordered Date Performed Result Body Sit e CARDIO Stress Test - Cardiolite 03/21/2025 N/ACARDIO Kdaaxxmskmqwnd74/02/2025N/A Encounters Encounter Location Date Provider Diagnosis [facility] [address] [place] [address] 03/21/2025 Gerardo Hoy Dyspnea R06.00 and W ell adult Z00.00 [facility] [address] [place] [address] 08/13/2025 Gerardo Hoy Internal derangement of shoulder, right M24.811 ; KJ (obstructive sleep apnea) G47.33 and Dyspnea R06.00 [facility] [address] [place] [address] 04/17/2025 Gerardo Hoy [facility] [place] [address] 04/29/2025[facility] [place] [address]/06/2025[facility] [facility] [place] [address]/[facility] [facility] [place] [address]/[facility] [facility] [place] [address]/09/2024[facility] [facility] [place] [address]/11/2024 Gerardo HoySupraspinatus tendon tear S46.819A and Paresthesia of [place]20.[place] [address] [facility] [place] [address]/04/2025 [facility] [facility] [place] [address]/[place] Assessments Encounter Date Diagnosis (ICD Code) Assessment Notes Treatment Notes Treatment Clinical Notes Section Notes 03/21/2025 Dyspnea (ICD-10 - R06.00) 03/21/2025Well adult (ICD-10 - Z00.00)08/13/2025OSA (obstructive sleep apnea) (ICD-10 - G47.33)needs added weight loss to improve sleep apnea - willing to try /24/2025Internal derangement of shoulder, right (ICD-10 - M24.811) 08/22/2025Paresthesia of arm (ICD-10 - R20.2)08/22/2025Supraspinatus tendon tear (ICD-10 - S46.819A)08/13/2025Dyspnea (ICD-10 - R06.00)sampekarina Plan Of Treatment Pending Test Test Name Order Date CMP (COMPLETE METABOLIC PANEL) HEMOGLOBIN A1C (GLYCO) 03/12/2023 HEMOGLOBIN A1C (GLYCO) 03/21/2025 INSULIN, TOTAL 03/12/2023 LIPID PANEL (CHOL/TRIG/HDL/LDL) 03/12/20 23 LIPID PANEL (CHOL/TRIG/HDL/LDL) 03/21/20 CBC WITH DIFF (EXP 07/2025) 03/12/2023 PSA, PROSTATE-SPECIFIC ANTIGEN 3 CT Abdomen and Pelvis w/contrast * 03/12 CARDIO Stress Test - Cardiolite 03/21/20 25 CARDIO Echocardiogram 03/21/2025 Insulin Level 03/21/2025 High Sensitivity Troponin 03/21/2025 BNP 03/21/2025 MRI CSPINE WO CON 08/22/2025 MRI SHOULDER RT WO CON 08/13/2025 XR [...] Date Coverage End Date [employer] [address] [address] [place] [address] [id number] Mala Garcia Self - patient is the insured 3 Medical (General) History Medical History History ICD Code Shingles B02.9 KJ (obstructive sleep apnea) G47.33 Rotator Cuff Tear Adenocarcinoma AppendixIBS (irritable bowel syndrome)K58.0TbgachduhoymY56.7 XasgkhfrlcV77.6T1EHfoueuwh of uncertain behavior of ljoxpmjtH85.3Surgical History Surgery Date(Month/Year) Bicep Tenotomy EGD/Hmgtjqjyvtq52/20/2013Distal Splenrenal Shunt PlacementHospitalization History Reason Date(Month/Year) See above
--- OUTSIDE RECORDS SUMMARY | 2025-09-04 14:46 | XMS_ITS | Clinical Summary ---
Author Organization [facility] Address [address] [place] [address] Phone Care Team Providers Care Road Passenger Firer Name Role Phone Stefan Coto MD Primary Care Provider [phone] Social History Tobacco UseTypesPacks/DayYears UsedDateSmoking Tobacco: Never AssessedSex and Gender InformationValueDate RecordedSex Assigned at BirthNot on fileLegal Sex Male08/15/2022 10:26 AM ESTGender IdentityNot on fileSexual OrientationNot on file Last Filed Vital Signs Vital SignReadingTime TakenCommentsBlood Pressure--Pulse--Temperature-- Respiratory Rate--Oxygen Saturation--Inhaled Oxygen Concentration--Tgihnt270 kg (270 lb 15.1 oz)11/30/2018 7:44 AM YZHHyjhow697.7 cm (5' 7.99 )11/30/2018 7:44 AM EDTBody Mass Index41.21011/30/2018 7:44 AM EDT Plan of Treatment Not on file Care Teams Team MemberRelationshipSpecialtyStart DateEnd Date Stefan Coto MD [address] [facility] [place] [address] PCP - General11/16/18
--- OUTSIDE RECORDS SUMMARY | 2025-09-04 14:46 | XMS_ITS | Clinical Summary ---
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 Social History Tobacco UseTypesPacks/DayYears UsedDateSmoking Tobacco: NeverSmokeless Tobacco: NeverAlcohol UseStandard Drinks/WeekCommentsNo0 (1 standard drink = 0.6 oz pure alcohol)Sex and Gender InformationValueDate RecordedSex Assigned at BirthNot on fileLegal UymKjnd05/24/2014 10:49 AM EDTGender IdentityNot on fileSexual OrientationNot on file Last Filed Vital Signs Vital SignReadingTime TakenCommentsBlood Wghmpyce450/8406 3:49 PM EDT Tepua687502/27/2016 3:49 PM FYBNzfwyfnhvgk88.9 ??C (98.4 ??F)02/06/2016 10:45 AM EDTRespiratory Wyan639502/27/2016 3:49 PM EDTOxygen Saturation--Inhaled Oxygen Concentration--Odlgni661.7 kg (264 lb)02/27/2016 3:49 PM FQYUrpzcb469.7 cm (5' 7.99 )02/27/2016 3:49 PM EDTBody Mass Index40.1506 3:49 PM EDT Plan of Treatment Health MaintenanceDue DateLast DoneCommentsAnxiety Yvqabfjyw68/24/2001Depression Sdhulpoee89/24/2001HIV Tpdzibdob14/24/2001Hepatitis C Hommckjol69/24/2001 DTaP,Tdap,Td Vaccine (1 - Tdap)2002Hepatitis B Vaccine (1 of 3 - 19+ 3- dose series)2002HPV Vaccine (1 - 3-dose SCDM series)2010Lipid Jhusnahyh22/24/2018Covid-19 Vaccine (1 - 2024- season)2025Influenza Vaccine (#1)2025 Care Teams Team MemberRelationshipSpecialtyStart DateEnd Date Stefan Coto (Historical) [address] [place] [address] PCP - Fcyofrl36/27/14
--- OUTSIDE RECORDS SUMMARY | 2025-09-04 14:46 | XMS_ITS | Clinical Summary ---
Author Organization [facility] Address [address] [place] [address] Care Team Providers Care Senior Interactive Developer Name Role Phone Unavailable Primary Care Provider Unavailabl e Social History Tobacco UseTypesPacks/DayYears UsedDateSmoking Tobacco: Never AssessedSex and Gender InformationValueDate RecordedSex Assigned at BirthNot on fileLegal Sex Male12/02/2022 8:15 PM EDTGender IdentityNot on fileSexual OrientationNot on file Last Filed Vital Signs Vital SignReadingTime TakenCommentsBlood Xgkuoemb180/0515212/14/2018 12:00 PM EDT Pulse--Temperature--Respiratory Rate--Oxygen Saturation--Inhaled Oxygen Concentration--Ksfuuc882 kg (265 lb)12/14/2018 12:00 PM TKDSjhoui433.7 cm (5' 8 )12/14/2018 12:00 PM EDTBody Mass Index40.29012/14/2018 12:00 PM EDT Plan of Treatment Not on file
--- NOTE | 2025-09-04 14:48 | MR_ITS ---
[address] [address] Patient Name: MALA GIBSON MRN: [id number] date: 1985 Sex: M Assigned Patient Location: MRI Current Patient Location: MRI Accession/Order Number: [id number] Exam Date: 09/04/2025 15:00 Report Date: 09/04/2025 21:16 At the request of: YOLANDA PULIDO MD Procedure: MR cervical spine wo con MR cervical spine wo con 09/04/2025 4:22 PM SIGNS AND SYMPTOMS: ^Paresthesia Of Arm PROTOCOL: Multiplanar multisequence MR images of the cervical spine without IV contrast COMPARISON: None. FINDINGS: The bones of the cervical spine are in anatomic alignment. There is preservation of vertebral body heights. There is mild disc height loss at C5-C6 and C6-C7. The marrow signal is within normal limits. The cord is normal in signal. No epidural or paraspinous fluid collection is appreciated. The visualized paraspinous soft tissues are within normal limits. The prevertebral soft tissues are within normal limits. Mild mucosal thickening is noted in the right maxillary sinus. 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 At C2-C3: There is a normal disc, central canal, and neural foramen. At C3-C4: There is uncovertebral joint spurring with moderate to severe bilateral neural foraminal narrowing and mild spinal canal narrowing. At C4-C5: There is uncovertebral joint spurring with a mild broad-based disc bulge. There is mild to moderate spinal canal narrowing with mild bilateral neural foraminal narrowing. At C5-C6: There is uncovertebral joint spurring right greater than left. There is severe right neural foraminal narrowing with moderate spinal canal narrowing. There is mild left neural foraminal narrowing. At C6-C7: There is a broad-based disc bulge contributing to mild to moderate spinal canal narrowing. At C7-T1: There is a normal disc, central canal, and neural foramen. 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 No cord compression or cord signal abnormality. At C3-C4: There is uncovertebral joint spurring with moderate to severe bilateral neural foraminal narrowing and mild spinal canal narrowing. At C5-C6: There is uncovertebral joint spurring right greater than left. There is severe right neural foraminal narrowing with moderate spinal canal narrowing. There is mild left neural foraminal narrowing. Impression dictated by: Adin Locke M.D. 09/04/2025 9:16 PM Dictation Location: [place] [address] Electronically authenticated by: [id number] Y Date: 09/04/2025 21:16
== END 2025-09-04 14:42 | disposition home or self-care (01) ==
LOC: MRI 14:41
PROVIDERS: PCP Family Medicine; Visit Provider Family Medicine
DX: R20.2 Paresthesia of skin (principal); Q79.9 Congenital malformation of musculoskeletal system, unspecified
CPT/HCPCS: 72141